=== PATIENT | male | born 1995 | race Caucasian/White ===

== ENCOUNTER 2019-04-14 12:31 | Outpatient (CLI) | payer OTHER ==
--- NOTE | 2019-04-14 13:21 | RAD ---
EXAM: 3 views of the left foot HISTORY: Foot pain COMPARISON: None FINDINGS: 3 views of the left foot shows no evidence of acute fracture or dislocation. No soft tissue swelling is seen. No degenerative changes are present. IMPRESSION: No evidence of acute osseous abnormality.
--- NOTE | 2019-04-14 13:33 | RAD ---
LEFT LEG TWO VIEWS: INDICATIONS: Pain. FINDINGS: No fracture or dislocation of the tibia or fibula identified. No significant soft tissue abnormality. IMPRESSION: No acute osseous abnormality left leg. POS: C
== END 2019-04-14 12:32 | disposition home or self-care (01) ==
LOC: BICRAD 12:31
PROVIDERS: ATTEND Family Medicine
DX: M79.605 Pain in left leg (principal)

== ENCOUNTER 2019-04-24 11:10 | Outpatient (CLI) | payer OTHER ==
--- NOTE | 2019-04-24 11:41 | RAD ---
XR Tib Fib Rt Leg 2 View: 04/24/2019 12:00 AM CLINICAL INDICATION: Pain COMPARISON: None. FINDINGS: Fracture:No fracture. Arthropathy:None of significance. Incidental findings:None of significance. IMPRESSION: 1. No acute osseous abnormality.
== END 2019-04-24 11:11 | disposition home or self-care (01) ==
LOC: BICRAD 11:10
PROVIDERS: ATTEND Family Medicine
DX: M25.561 Pain in right knee (principal)

== ENCOUNTER 2022-03-03 09:04 | Outpatient (CLI) | payer OTHER | END 2022-03-03 09:05 | disposition home or self-care (01) | LOC: BICRAD 09:04 | PROVIDERS: ATTEND Family Medicine | DX: M25.571 Pain in right ankle and joints of right foot (principal); M79.671 Pain in right foot; M79.89 Other specified soft tissue disorders ==

== ENCOUNTER 2022-10-11 21:30 | Inpatient (IN) | payer OTHER ==
[~2022-10-11 21:30] MED LIST: Iopamidol-370 76% 500 ML MDV (1 ML CHARGE) ONE
[2022-10-11] MEDS ORDERED: Morphine 4 MG/ML VIAL ONE (21:59)
[2022-10-11] MEDS ORDERED: Ondansetron PF 4 MG/2 ML Vial ONE (21:59)
[2022-10-11 22:34] LABS: #Eosinphils 0.1 thou/uL (0.0-0.7); #Lymphocytes 2.3 thou/uL (1.20-3.40); #Neutrophils 4.9 thou/uL (1.40-6.50); %Basophils 0.2 % (0.0-1.0); %Eosinophils 1.4 % (0.0-10.0); %Lymphocytes 27.8 % (21.0-51.0); %Monocytes 11.7 % (0.0-10.0); %Neutrophils 58.9 % (42.0-75.0); Mean Corpuscular Hemoglobin 38.1 pg (27.0-31.0); Platelet Count 196 10x3/uL (130-400); RBC Distribution Width 15.2 % (11.5-14.5); Red Blood Cell (RBC) Count 3.41 mill/uL (4.70-6.10); White Blood Cell (WBC) Count 8.4 10x3/uL (4.8-10.8)
[2022-10-11 22:53] LABS: ALT (SGPT) 17 U/L (8-55); AST (SGOT) 27 U/L (5-34); Alkaline Phosphatase 57 U/L (40-110); Anion Gap 13 mmol/L (10-20); BUN (Urea Nitrogen) 20 mg/dL (8.9-20.6); Bilirubin, Total 1.5 mg/dL (0.2-1.2); Calc. Creatinine Clearance 0 mL/min (70-130); Calcium 9.7 mg/dL (7.8-10.44); Carbon Dioxide 34 mmol/L (22-29); Chloride 99 mmol/L (98-107); Estimated GFR 127; Globulin 3.2 g/dL (2.4-3.5); Glucose 71 mg/dL (70-105); Potassium 3.8 mmol/L (3.5-5.1); Protein, Total 7.2 g/dL (6.0-8.3); Sodium 142 mmol/L (136-145)
[2022-10-11 23:04] LABS: Anisocytosis SLIGHT = 6-15 cells (100X) (0-5/hpf); MDiff Complete? YES; Macrocytosis SLIGHT = 6-15 cells (100X) (0-5/hpf); Platelet Morphology Comment Appears Adequate; Polychromasia SLIGHT = 2-3 cells (100X) (0-2/hpf); Stomatocytes MODERATE= 6-15 cells (100X) (0-1/hpf)
[2022-10-11 23:08] LABS: Lipase 2422 U/L (8-78)
[2022-10-11 23:31] LABS: Bacteria/HPF None Seen HPF (None Seen); Bilirubin 1+ (Negative); Blood, Urine Negative (Negative); Clarity Clear (Clear); Glucose, Urine (Dipstick) Normal (Negative); Ketone, Urine 20 mg/dL (Negative); Leukocyte Negative Leu/uL (Negative); Nitrite Negative (Negative); Protein, Urine (Dipstick) 30 mg/dL (Neg-Trace); RBC/HPF 0-3 HPF (0-3); Specific Gravity, Urine 1.046 (1.002-1.036); Squamous Epithelial 0-3 HPF (0-3); Urobilinogen 12 mg/dL (Less than 2); WBC/HPF 0-3 HPF (0-3)
[2022-10-12] MEDS ORDERED: Ondansetron ODT 4 MG TAB SL PRN (00:30)
[2022-10-12] MEDS ORDERED: Ondansetron PF 4 MG/2 ML Vial IVP PRN (00:30)
[2022-10-12] MEDS ORDERED: Sodium Chloride 0.9% 1,000 ML IV SCH ×2 (00:30→03:45)
[2022-10-12 00:45] VITALS: BMI 33.3
[2022-10-12] MEDS ORDERED: Morphine 2 MG/ML VIAL SLOW IVP SCH (02:15)
[2022-10-12] MEDS ORDERED: Lorazepam 2 MG/ML VIAL ONE (03:59)
[2022-10-12] MEDS ORDERED: Lorazepam 2 MG/ML VIAL SLOW IVP SCH (04:00)
[2022-10-12 06:00] LABS: #Eosinphils 0.2 thou/uL (0.0-0.7); #Lymphocytes 2.3 thou/uL (1.20-3.40); #Neutrophils 6.4 thou/uL (1.40-6.50); %Basophils 0.1 % (0.0-1.0); %Eosinophils 2.1 % (0.0-10.0); %Lymphocytes 22.9 % (21.0-51.0); %Monocytes 10.3 % (0.0-10.0); %Neutrophils 64.6 % (42.0-75.0); Hemoglobin 11.7 g/dL (14.0-18.0); Mean Corpuscular HGB CONC 32.8 g/dL (32.0-36.0); Mean Corpuscular Hemoglobin 38.6 pg (27.0-31.0); Mean Platelet Volume 6.9 fL (7.4-10.4); Platelet Count 186 10x3/uL (130-400); RBC Distribution Width 15.1 % (11.5-14.5); Red Blood Cell (RBC) Count 3.03 mill/uL (4.70-6.10); White Blood Cell (WBC) Count 9.9 10x3/uL (4.8-10.8)
[2022-10-12] MEDS ORDERED: Electrolyte Replacement Protocol 1 EACH FS SCH (06:00)
[2022-10-12] MEDS ORDERED: Lactated Ringer's 1,000 ML IV SCH (06:00)
[2022-10-12 06:22] LABS: Cardiac Risk 2.8 (Less than 4.5)
[2022-10-12 06:29] LABS: Anion Gap 16 mmol/L (10-20); BUN (Urea Nitrogen) 17 mg/dL (8.9-20.6); Calc. Creatinine Clearance 228 mL/min (70-130); Calcium 8.8 mg/dL (7.8-10.44); Carbon Dioxide 28 mmol/L (22-29); Chloride 103 mmol/L (98-107); Estimated GFR 129; Glucose 57 mg/dL (70-105); Sodium 143 mmol/L (136-145)
[2022-10-12] MEDS: Acetaminophen 650 MG Suppository PR PRN ×2 (07:15→12:30)
[2022-10-12] MEDS: Morphine 2 MG/ML VIAL SLOW IVP PRN ×2 (08:01→20:37)
[2022-10-12] MEDS: Famotidine/PF 20 mg/2ml Vial SLOW IVP SCH ×2 (08:01→22:13)
[2022-10-12] MEDS ORDERED: Dextrose 5%-Lactated Ringers 1,000 ML IV SCH (09:45)
[2022-10-12] MEDS ORDERED: Valproate Sodium 250 mg/5 ml UD Cup PO SCH (10:00)
[2022-10-12] MEDS: Amantadine HCl 100 mg Capsule PO SCH ×2 (10:29→12:40)
[2022-10-12] MEDS: cloNIDine 0.1 MG TAB PO SCH ×3 (10:29→22:13)
[2022-10-12] MEDS ORDERED: AMANTADINE HCL 100 MG PO SCH (11:00)
[2022-10-12] MEDS ORDERED: FLUoxetine HCl 20 MG/5 ML UDCUP PO SCH (11:45)
[2022-10-12] MEDS: Dextrose 5%-Lactated Ringers 1,000 ML IV SCH ×2 (12:12→17:28)
[2022-10-12] MEDS: Lorazepam 2 MG/ML VIAL SLOW IVP PRN ×2 (12:14→18:17)
[2022-10-12] MEDS: Ketorolac Tromethamine 30 MG/ML VIAL IVP SCH ×2 (12:15→17:27)
[2022-10-12] MEDS ORDERED: Piperacillin/Tazobactam 3.375 GM in Sodium Chloride 0.9% 100 ML IVPB SCH ×2 (12:45→13:15)
[2022-10-12] MEDS ORDERED: FLUoxetine HCl 10 MG CAP PO SCH (15:00)
[2022-10-12] MEDS: Piperacillin/Tazobactam 3.375 GM in Sodium Chloride 0.9% 100 ML IVPB SCH (17:28)
[2022-10-12] MEDS: Valproate Sodium 250 mg/5 ml UD Cup PO SCH (22:14)
[2022-10-12] MEDS: FLUoxetine HCl 10 MG CAP PO SCH (22:14)
[2022-10-13] MEDS: Ketorolac Tromethamine 30 MG/ML VIAL IVP SCH ×4 (00:20→17:58)
[2022-10-13] MEDS: Lorazepam 2 MG/ML VIAL SLOW IVP PRN ×3 (00:22→17:59)
[2022-10-13] MEDS: Dextrose 5%-Lactated Ringers 1,000 ML IV SCH ×4 (00:23→23:41)
[2022-10-13] MEDS: Piperacillin/Tazobactam 3.375 GM in Sodium Chloride 0.9% 100 ML IVPB SCH ×3 (02:35→16:49)
[2022-10-13 05:28] LABS: #Eosinphils 0.5 thou/uL (0.0-0.7); #Lymphocytes 2.3 thou/uL (1.20-3.40); #Monocytes 0.6 thou/uL (0.11-0.59); #Neutrophils 5.3 thou/uL (1.40-6.50); %Basophils 0.5 % (0.0-1.0); %Eosinophils 5.3 % (0.0-10.0); %Lymphocytes 26.6 % (21.0-51.0); %Monocytes 6.6 % (0.0-10.0); Mean Corpuscular HGB CONC 34.2 g/dL (32.0-36.0); Mean Corpuscular Hemoglobin 40.3 pg (27.0-31.0); Mean Platelet Volume 7.1 fL (7.4-10.4); Platelet Count 160 10x3/uL (130-400); Red Blood Cell (RBC) Count 2.73 mill/uL (4.70-6.10); White Blood Cell (WBC) Count 8.7 10x3/uL (4.8-10.8)
[2022-10-13 05:54] LABS: ALT (SGPT) 16 U/L (8-55); AST (SGOT) 30 U/L (5-34); Albumin 3.2 g/dL (3.5-5.0); Alkaline Phosphatase 49 U/L (40-110); Anion Gap 12 mmol/L (10-20); BUN (Urea Nitrogen) 12 mg/dL (8.9-20.6); Calc. Creatinine Clearance 260 mL/min (70-130); Calcium 9.1 mg/dL (7.8-10.44); Carbon Dioxide 31 mmol/L (22-29); Cardiac Risk 2.9 (Less than 4.5); Chloride 104 mmol/L (98-107); Cholesterol 97 mg/dl (< 200 Desired); Estimated GFR 134; Globulin 2.9 g/dL (2.4-3.5); Glucose 94 mg/dL (70-105); HDL Cholesterol 33 mg/dL (>60 Neg Risk); LDL Cholesterol, Calculated 41 mg/dL; Potassium 4.2 mmol/L (3.5-5.1); Protein, Total 6.1 g/dL (6.0-8.3); Sodium 143 mmol/L (136-145); Triglycerides 114 mg/dL (Less than 150)
[2022-10-13] MEDS ORDERED: Amantadine HCl 100 mg Capsule PO SCH (09:00)
[2022-10-13] MEDS: Famotidine/PF 20 mg/2ml Vial SLOW IVP SCH ×2 (09:57→21:19)
[2022-10-13] MEDS: cloNIDine 0.1 MG TAB PO SCH ×2 (09:57→21:19)
[2022-10-13] MEDS: Valproate Sodium 250 mg/5 ml UD Cup PO SCH ×2 (10:18→21:19)
[2022-10-13] MEDS: AMANTADINE HCL 100 MG PO SCH (10:18)
[2022-10-13] MEDS: FLUoxetine HCl 10 MG CAP PO SCH (10:27)
[2022-10-13] MEDS ORDERED: FLUoxetine HCl 20 MG/5 ML UDCUP PER TUBE SCH (10:30)
[2022-10-13] MEDS: Morphine 2 MG/ML VIAL SLOW IVP PRN (21:19)
[2022-10-13] MEDS: FLUoxetine HCl 20 MG/5 ML UDCUP PER TUBE SCH (21:21)
[2022-10-14] MEDS: Piperacillin/Tazobactam 3.375 GM in Sodium Chloride 0.9% 100 ML IVPB SCH ×2 (00:23→09:54)
[2022-10-14] MEDS: Ketorolac Tromethamine 30 MG/ML VIAL IVP SCH ×3 (00:23→14:35)
[2022-10-14] MEDS: Dextrose 5%-Lactated Ringers 1,000 ML IV SCH ×2 (06:19→09:03)
[2022-10-14] MEDS: Famotidine/PF 20 mg/2ml Vial SLOW IVP SCH (09:03)
[2022-10-14] MEDS: cloNIDine 0.1 MG TAB PO SCH (09:03)
[2022-10-14] MEDS: FLUoxetine HCl 20 MG/5 ML UDCUP PER TUBE SCH (09:04)
[2022-10-14] MEDS: AMANTADINE HCL 100 MG PO SCH (09:04)
[2022-10-14] MEDS: Valproate Sodium 250 mg/5 ml UD Cup PO SCH (09:53)
[2022-10-14 11:45] VITALS: BP 137/89; TEMP 98.4
== END 2022-10-14 15:17 | disposition home or self-care (01) | DRG 439 ==
LOC: ERS 21:30 → T4-A 23:42 → CCU 10-12 04:59 → 2NO 10-12 08:36
PROVIDERS: ADMIT Hospitalist; ATTEND Hospitalist
DX: K85.90 Acute pancreatitis without necrosis or infection, unspecified (principal); E87.3 Alkalosis; F84.0 Autistic disorder; Z79.899 Other long term (current) drug therapy; Z88.8 Allergy status to other drugs, medicaments and biological substances; H91.3 Deaf nonspeaking, not elsewhere classified; Q98.4 Klinefelter syndrome, unspecified; D64.9 Anemia, unspecified; K59.00 Constipation, unspecified
CPT/HCPCS: 36415; 36416; 71045; 71275; 74177; 80048; 80053; 80061; 81003; 81015; 83605; 83690; 85025; 87040; 87086; 96374; 96375; J1885; J2060; J2270; J2272; J2405; J2543; J3490; J7050; J7120; Q9967; S0028; U0003; U0005

== ENCOUNTER 2022-10-14 17:48 | Inpatient (IN) | payer BC, OTHER ==
[2022-10-14 18:16] LABS: #Eosinphils 0.9 thou/uL (0.0-0.7); #Lymphocytes 2.7 thou/uL (1.20-3.40); #Monocytes 0.5 thou/uL (0.11-0.59); %Basophils 0.5 % (0.0-1.0); %Eosinophils 11.5 % (0.0-10.0); %Lymphocytes 32.7 % (21.0-51.0); %Monocytes 6.1 % (0.0-10.0); %Neutrophils 49.3 % (42.0-75.0); Hemoglobin 9.9 g/dL (14.0-18.0); Mean Corpuscular HGB CONC 34.2 g/dL (32.0-36.0); Mean Corpuscular Hemoglobin 40.5 pg (27.0-31.0); Platelet Count 179 10x3/uL (130-400); RBC Distribution Width 14.8 % (11.5-14.5); Red Blood Cell (RBC) Count 2.44 mill/uL (4.70-6.10); White Blood Cell (WBC) Count 8.1 10x3/uL (4.8-10.8)
[2022-10-14 18:38] LABS: ALT (SGPT) 14 U/L (8-55); AST (SGOT) 17 U/L (5-34); Alkaline Phosphatase 51 U/L (40-110); Anion Gap 12 mmol/L (10-20); BUN (Urea Nitrogen) 9 mg/dL (8.9-20.6); Bilirubin, Total 0.6 mg/dL (0.2-1.2); Calc. Creatinine Clearance 0 mL/min (70-130); Carbon Dioxide 34 mmol/L (22-29); Chloride 102 mmol/L (98-107); Estimated GFR 133; Glucose 92 mg/dL (70-105); Potassium 3.6 mmol/L (3.5-5.1); Sodium 144 mmol/L (136-145)
[2022-10-14 18:42] LABS: Actual Bicarbonate (HCO3v) 35.6 mEq/L (22-28); Base Excess 9.8 mEq/L (-2.0 to +3.0); Calcium, Ionized (venous) 1.08 mmol/L (1.16-1.32); Chloride (VBG) 101 mmol/L (98-106); Hematocrit-VBG 32 % (42.0-52.0); Hemoglobin (Hb) 10.8 g/dL (13.2-17.3); Potassium (VBG) 3.77 mmol/L (3.70-5.30); Sodium 142.8 mmol/L (133-146); pH (venous) 7.431 (7.32-7.43)
[2022-10-14] MEDS ORDERED: Morphine 4 MG/ML VIAL ONE (18:50)
[2022-10-14] MEDS ORDERED: Pantoprazole 40 MG VIAL ONE (19:17)
[2022-10-14] MEDS ORDERED: Acetaminophen 325 MG TAB PO PRN (20:12)
[2022-10-14] MEDS ORDERED: Acetaminophen 650 MG Suppository PR PRN (20:12)
[2022-10-14] MEDS ORDERED: Bisacodyl 5 MG TAB PO PRN (20:12)
[2022-10-14] MEDS ORDERED: Bisacodyl 10 MG SUPP PR PRN (20:12)
[2022-10-14] MEDS ORDERED: Senokot S 8.6-50 MG TAB PO PRN (20:12)
[2022-10-14] MEDS ORDERED: Furosemide 20 MG/2 ML VIAL SLOW IVP SCH (20:15)
[2022-10-14] MEDS ORDERED: Lorazepam 2 MG/ML VIAL ONE (22:43)
[2022-10-14 22:50] LABS: Actual Bicarbonate (HCO3a) 33.2 mEq/L (22-28); Base Excess (BEa) 8.3 mEq/L (-2.0 to +3.0); CO2 Tension 47.8 mmHg (35.0-45.0); Calcium, Ionized (arterial) 1.12 mmol/L (1.12-1.30); Carboxyhemoglobin (COHb) 0.3 gm% (0.0-3.0); Hematocrit-ABG 32 % (42.0-52.0); Hemoglobin (Hb) 10.9 g/dL (14.0-18.0); Potassium - ABG Lab 3.63 mmol/L (3.70-5.30)
[2022-10-14 22:52] LABS: Puncture Site RRA
[2022-10-14 23:02] LABS: #Eosinphils 0.9 thou/uL (0.0-0.7); #Lymphocytes 3.1 thou/uL (1.20-3.40); #Monocytes 0.1 thou/uL (0.11-0.59); #Neutrophils 3.6 thou/uL (1.40-6.50); %Basophils 0.6 % (0.0-1.0); %Eosinophils 11.2 % (0.0-10.0); %Lymphocytes 39.9 % (21.0-51.0); %Monocytes 1.3 % (0.0-10.0); %Neutrophils 46.9 % (42.0-75.0); Hemoglobin 10.9 g/dL (14.0-18.0); Mean Corpuscular HGB CONC 33.7 g/dL (32.0-36.0); Mean Corpuscular Hemoglobin 40.5 pg (27.0-31.0); Mean Platelet Volume 7.3 fL (7.4-10.4); Platelet Count 179 10x3/uL (130-400); RBC Distribution Width 15.1 % (11.5-14.5); White Blood Cell (WBC) Count 7.8 10x3/uL (4.8-10.8)
[2022-10-14] MEDS ORDERED: Dextrose 50% Abboject 50 ML SYRINGE ONE (23:18)
[2022-10-14 23:22] LABS: Anion Gap 16 mmol/L (10-20); BUN (Urea Nitrogen) 7 mg/dL (8.9-20.6); Calc. Creatinine Clearance 263 mL/min (70-130); Calcium 8.7 mg/dL (7.8-10.44); Carbon Dioxide 28 mmol/L (22-29); Chloride 101 mmol/L (98-107); Estimated GFR 131; Glucose 156 mg/dL (70-105); Magnesium 1.4 mg/dL (1.6-2.6); Phosphorus 4.6 mg/dL (2.3-4.7); Potassium 4.1 mmol/L (3.5-5.1); Sodium 141 mmol/L (136-145)
[2022-10-15 06:16] LABS: Hemoglobin 10.2 g/dL (14.0-18.0); Mean Corpuscular HGB CONC 33.7 g/dL (32.0-36.0); Mean Corpuscular Hemoglobin 40.1 pg (27.0-31.0); Mean Platelet Volume 6.9 fL (7.4-10.4); Platelet Count 206 10x3/uL (130-400); RBC Distribution Width 14.9 % (11.5-14.5); Red Blood Cell (RBC) Count 2.55 mill/uL (4.70-6.10); White Blood Cell (WBC) Count 8.1 10x3/uL (4.8-10.8)
[2022-10-15 06:32] LABS: #Monocytes 0.3 thou/uL (0.11-0.59); #Neutrophils 3.8 thou/uL (1.40-6.50); %Basophils 0.2 % (0.0-1.0); %Eosinophils 11.9 % (0.0-10.0); %Lymphocytes 37.2 % (21.0-51.0); %Neutrophils 46.7 % (42.0-75.0); MDiff Complete? YES; Macrocytosis MODERATE=16-30 cells (100X) (0-5/hpf)
[2022-10-15 06:34] LABS: ALT (SGPT) 13 U/L (8-55); AST (SGOT) 30 U/L (5-34); Albumin 3.1 g/dL (3.5-5.0); Alkaline Phosphatase 59 U/L (40-110); Anion Gap 14 mmol/L (10-20); BUN (Urea Nitrogen) 8 mg/dL (8.9-20.6); Bilirubin, Total 0.6 mg/dL (0.2-1.2); Calc. Creatinine Clearance 259 mL/min (70-130); Calcium 8.9 mg/dL (7.8-10.44); Carbon Dioxide 35 mmol/L (22-29); Chloride 99 mmol/L (98-107); Estimated GFR 130; Globulin 3.8 g/dL (2.4-3.5); Glucose 75 mg/dL (70-105); Potassium 3.6 mmol/L (3.5-5.1); Protein, Total 6.9 g/dL (6.0-8.3); Sodium 144 mmol/L (136-145)
[2022-10-15 09:18] LABS: Cardiac Risk 4.5 (Less than 4.5)
[2022-10-15] MEDS ORDERED: Iopamidol-370 76% 500 ML MDV (1 ML CHARGE) ONE (10:41)
[2022-10-15] MEDS: Sodium Chloride 0.9% 1,000 ML IV SCH (13:11)
[2022-10-15] MEDS ORDERED: Magnesium Sulfate In Water 4 GM in Premix Bag 1 BAG IVPB SCH (13:15)
[2022-10-15] MEDS ORDERED: Valproate Sodium 250 mg/5 ml UD Cup PO SCH (13:15)
[2022-10-15] MEDS: Pantoprazole 40 MG VIAL IVP SCH (13:35)
[2022-10-15] MEDS: Morphine 2 MG/ML VIAL SLOW IVP PRN ×2 (14:16→20:15)
[2022-10-15 17:09] LABS: Magnesium 2.5 mg/dL (1.6-2.6)
[2022-10-15] MEDS: FLUoxetine HCl 20 MG/5 ML UDCUP PO SCH (20:18)
[2022-10-15] MEDS: Valproate Sodium 250 mg/5 ml UD Cup PO SCH (20:18)
[2022-10-15] MEDS ORDERED: FLUoxetine HCl 10 MG CAP PO SCH (21:00)
[2022-10-15] MEDS: Polyvinyl Alcohol 1.4%/Povidone 0.6% Opth Drops EA EYE SCH (22:10)
[2022-10-16] MEDS: Sodium Chloride 0.9% 1,000 ML IV SCH ×4 (02:26→23:44)
[2022-10-16] MEDS: Morphine 2 MG/ML VIAL SLOW IVP PRN ×4 (03:59→23:26)
[2022-10-16 05:37] LABS: #Eosinphils 0.7 thou/uL (0.0-0.7); #Lymphocytes 2.5 thou/uL (1.20-3.40); #Monocytes 0.6 thou/uL (0.11-0.59); #Neutrophils 2.2 thou/uL (1.40-6.50); %Basophils 0.2 % (0.0-1.0); %Eosinophils 11.8 % (0.0-10.0); %Lymphocytes 40.6 % (21.0-51.0); %Monocytes 10.6 % (0.0-10.0); %Neutrophils 36.8 % (42.0-75.0); Hemoglobin 10.7 g/dL (14.0-18.0); Mean Corpuscular HGB CONC 33.6 g/dL (32.0-36.0); Mean Corpuscular Hemoglobin 39.9 pg (27.0-31.0); Mean Platelet Volume 6.5 fL (7.4-10.4); Platelet Count 184 10x3/uL (130-400); RBC Distribution Width 14.7 % (11.5-14.5); Red Blood Cell (RBC) Count 2.69 mill/uL (4.70-6.10)
[2022-10-16 06:14] LABS: AST (SGOT) 24 U/L (5-34); Bilirubin, Total 0.7 mg/dL (0.2-1.2); Calcium 8.9 mg/dL (7.8-10.44); Chloride 101 mmol/L (98-107); Potassium 3.7 mmol/L (3.5-5.1); Sodium 140 mmol/L (136-145)
[2022-10-16 06:20] LABS: Albumin 3.1 g/dL (3.5-5.0)
[2022-10-16 06:22] LABS: Glucose 65 mg/dL (70-105)
[2022-10-16 06:23] LABS: Globulin 3.3 g/dL (2.4-3.5); Protein, Total 6.4 g/dL (6.0-8.3)
[2022-10-16 06:24] LABS: Anion Gap 18 mmol/L (10-20); Carbon Dioxide 26 mmol/L (22-29)
[2022-10-16 06:25] LABS: Alkaline Phosphatase 55 U/L (40-110)
[2022-10-16 06:26] LABS: Calc. Creatinine Clearance 302 mL/min (70-130); Estimated GFR 137
[2022-10-16 06:27] LABS: BUN (Urea Nitrogen) 11 mg/dL (8.9-20.6)
[2022-10-16 06:28] LABS: ALT (SGPT) 12 U/L (8-55)
[2022-10-16] MEDS ORDERED: Dextrose 5%-Lactated Ringers 1,000 ML IV SCH (08:30)
[2022-10-16] MEDS: Amantadine HCl 100 mg Capsule PO SCH (08:54)
[2022-10-16] MEDS: FLUoxetine HCl 20 MG/5 ML UDCUP PO SCH ×2 (08:55→21:34)
[2022-10-16] MEDS: Pantoprazole 40 MG VIAL IVP SCH (08:55)
[2022-10-16] MEDS: Valproate Sodium 250 mg/5 ml UD Cup PO SCH ×2 (08:55→21:36)
[2022-10-16] MEDS: Polyvinyl Alcohol 1.4%/Povidone 0.6% Opth Drops EA EYE SCH ×2 (10:02→21:57)
[2022-10-16] MEDS: cloNIDine 0.1 MG TAB PO SCH ×2 (21:32→23:29)
[2022-10-16] MEDS ORDERED: cloNIDine 0.2 MG TAB PO SCH (23:15)
[2022-10-17] MEDS: Morphine 2 MG/ML VIAL SLOW IVP PRN (03:56)
[2022-10-17 06:14] LABS: Strep pneumo Urine Ag NEGATIVE (NEGATIVE)
[2022-10-17 06:29] LABS: #Eosinphils 0.7 thou/uL (0.0-0.7); #Lymphocytes 2.1 thou/uL (1.20-3.40); #Monocytes 0.6 thou/uL (0.11-0.59); %Basophils 0.7 % (0.0-1.0); %Eosinophils 12.4 % (0.0-10.0); %Lymphocytes 39.7 % (21.0-51.0); %Monocytes 10.3 % (0.0-10.0); %Neutrophils 36.9 % (42.0-75.0); Hemoglobin 9.6 g/dL (14.0-18.0); Mean Corpuscular HGB CONC 34.4 g/dL (32.0-36.0); Mean Corpuscular Hemoglobin 40.7 pg (27.0-31.0); Mean Platelet Volume 6.7 fL (7.4-10.4); Platelet Count 151 10x3/uL (130-400); RBC Distribution Width 14.7 % (11.5-14.5); Red Blood Cell (RBC) Count 2.36 mill/uL (4.70-6.10); White Blood Cell (WBC) Count 5.4 10x3/uL (4.8-10.8)
[2022-10-17 06:47] LABS: ALT (SGPT) 9 U/L (8-55); AST (SGOT) 17 U/L (5-34); Albumin 2.8 g/dL (3.5-5.0); Alkaline Phosphatase 52 U/L (40-110); Anion Gap 13 mmol/L (10-20); BUN (Urea Nitrogen) 10 mg/dL (8.9-20.6); Bilirubin, Total 0.8 mg/dL (0.2-1.2); Calc. Creatinine Clearance 324 mL/min (70-130); Calcium 8.9 mg/dL (7.8-10.44); Carbon Dioxide 33 mmol/L (22-29); Chloride 99 mmol/L (98-107); Estimated GFR 139; Glucose 77 mg/dL (70-105); Potassium 3.5 mmol/L (3.5-5.1); Protein, Total 5.8 g/dL (6.0-8.3); Sodium 141 mmol/L (136-145)
[2022-10-17] MEDS: FLUoxetine HCl 20 MG/5 ML UDCUP PO SCH (09:54)
[2022-10-17] MEDS: Valproate Sodium 250 mg/5 ml UD Cup PO SCH ×2 (09:54→20:19)
[2022-10-17] MEDS: cloNIDine 0.2 MG TAB PO SCH ×2 (09:55→20:19)
[2022-10-17] MEDS: Pantoprazole 40 MG VIAL IVP SCH (09:56)
[2022-10-17] MEDS: Polyvinyl Alcohol 1.4%/Povidone 0.6% Opth Drops EA EYE SCH ×2 (09:57→20:20)
[2022-10-17] MEDS: Amantadine HCl 100 mg Capsule PO SCH (09:59)
[2022-10-17] MEDS: Sodium Chloride 0.9% 1,000 ML IV SCH (10:01)
[2022-10-17] MEDS ORDERED: Mineral Oil ENEMA PR SCH (11:30)
[2022-10-17] MEDS: NS 0.9% w/ 20 MEQ KCL 1,000 ML IV SCH (14:32)
[2022-10-18] MEDS ORDERED: fentaNYL PF 100 MCG/2 ML SYRINGE ONE (07:14)
[2022-10-18] MEDS ORDERED: Magnesium 5 GM/10 ML VIAL ONE (07:14)
[2022-10-18] MEDS ORDERED: Dexmedetomidine 200 MCG/2 ML VIAL ONE (07:14)
[2022-10-18] MEDS ORDERED: Iopamidol 30 ML ONE (07:30)
[2022-10-18] MEDS ORDERED: Bupivacaine/Epinephrine 0.25% 30 ML VIAL ONE (07:30)
[2022-10-18] MEDS: cloNIDine 0.2 MG TAB PO SCH ×2 (10:22→20:42)
[2022-10-18] MEDS: Amantadine HCl 100 mg Capsule PO SCH (10:22)
[2022-10-18] MEDS: Polyethylene Glycol 3350 17 GM Packet PO SCH ×2 (10:23→20:44)
[2022-10-18] MEDS: Pantoprazole 40 MG VIAL IVP SCH (10:23)
[2022-10-18] MEDS: FLUoxetine HCl 20 MG/5 ML UDCUP PO SCH (10:23)
[2022-10-18] MEDS: Valproate Sodium 250 mg/5 ml UD Cup PO SCH ×2 (10:24→20:43)
[2022-10-18] MEDS: Polyvinyl Alcohol 1.4%/Povidone 0.6% Opth Drops EA EYE SCH ×2 (10:24→23:27)
[2022-10-18] MEDS ORDERED: CEFAZOLIN 2 GM VIAL ONE (11:37)
[2022-10-18] MEDS ORDERED: Sodium Chloride 0.9% 100 ML ONE (11:37)
[2022-10-18] MEDS ORDERED: Ondansetron PF 4 MG/2 ML Vial ONE (11:50)
[2022-10-18] MEDS ORDERED: PROPOFOL 200 MG/20 ML VIAL ONE (11:50)
[2022-10-18] MEDS ORDERED: Rocuronium Bromide 10 MG/ML (10ML VIAL) ONE (11:50)
[2022-10-18] MEDS ORDERED: Lidocaine 1% PF 5 ML VIAL ONE (11:50)
[2022-10-18] MEDS ORDERED: SUGAMMADEX SODIUM 200 MG/2 ML VIAL ONE (13:04)
[2022-10-18] MEDS ORDERED: Promethazine HCl 25 MG/ML VIAL IM PRN (14:14)
[2022-10-18] MEDS ORDERED: Ondansetron HCl/PF 4 MG/2 ML Vial IVP PRN (14:14)
[2022-10-18] MEDS ORDERED: fentaNYL 50 mcg/mL 1 mL Vial ONE (14:36)
[2022-10-18] MEDS ORDERED: HYDROmorphone 0.5 MG/0.5 ML SYRINGE SLOW IVP SCH (15:45)
[2022-10-18] MEDS: Ketorolac Tromethamine 30 MG/ML VIAL IVP PRN (16:23)
[2022-10-18] MEDS: NS 0.9% w/ 20 MEQ KCL 1,000 ML IV SCH (16:24)
[2022-10-18 17:50] LABS: Hemoglobin 10.4 g/dL (14.0-18.0); Mean Corpuscular HGB CONC 34.9 g/dL (32.0-36.0); Mean Corpuscular Hemoglobin 41.5 pg (27.0-31.0); Mean Platelet Volume 6.7 fL (7.4-10.4); Platelet Count 187 10x3/uL (130-400); RBC Distribution Width 14.2 % (11.5-14.5)
[2022-10-18 18:03] LABS: ALT (SGPT) 18 U/L (8-55); AST (SGOT) 46 U/L (5-34); Alkaline Phosphatase 54 U/L (40-110); Anion Gap 18 mmol/L (10-20); BUN (Urea Nitrogen) 10 mg/dL (8.9-20.6); Bilirubin, Total 1.4 mg/dL (0.2-1.2); Calc. Creatinine Clearance 313 mL/min (70-130); Calcium 9.2 mg/dL (7.8-10.44); Carbon Dioxide 26 mmol/L (22-29); Chloride 97 mmol/L (98-107); Estimated GFR 138; Globulin 3.3 g/dL (2.4-3.5); Glucose 80 mg/dL (70-105); Potassium 3.4 mmol/L (3.5-5.1); Protein, Total 6.3 g/dL (6.0-8.3); Sodium 138 mmol/L (136-145)
[2022-10-18 18:22] LABS: Band 8 % (5-11); Eosinophils 8 % (0-10); Lymphocytes 46 % (21-51); MDiff Complete? YES; Macrocytosis SLIGHT = 6-15 cells (100X) (0-5/hpf); Metamyelocyte 1 % (0-0); Monocytes 13 % (0-10); Neutrophil 24 % (42-75); Platelet Morphology Comment Appears Adequate; Polychromasia SLIGHT = 2-3 cells (100X) (0-2/hpf)
[2022-10-18] MEDS ORDERED: Morphine 2 MG/ML VIAL SLOW IVP PRN (19:45)
[2022-10-18] MEDS ORDERED: traMADol HCl 50 MG TAB PO SCH (20:00)
[2022-10-18] MEDS ORDERED: Acetaminophen 500 MG TAB PO SCH (20:00)
[2022-10-18] MEDS: Ketorolac Tromethamine 30 MG/ML VIAL IVP SCH (20:34)
[2022-10-19] MEDS: Ketorolac Tromethamine 30 MG/ML VIAL IVP PRN (04:59)
[2022-10-19 05:56] LABS: ALT (SGPT) 20 U/L (8-55); AST (SGOT) 39 U/L (5-34); Albumin 2.5 g/dL (3.5-5.0); Alkaline Phosphatase 43 U/L (40-110); Anion Gap 15 mmol/L (10-20); BUN (Urea Nitrogen) 11 mg/dL (8.9-20.6); Calc. Creatinine Clearance 288 mL/min (70-130); Calcium 8.7 mg/dL (7.8-10.44); Carbon Dioxide 33 mmol/L (22-29); Chloride 98 mmol/L (98-107); Estimated GFR 135; Globulin 2.9 g/dL (2.4-3.5); Glucose 77 mg/dL (70-105); Lipase 78 U/L (8-78); Potassium 3.6 mmol/L (3.5-5.1); Protein, Total 5.4 g/dL (6.0-8.3); Sodium 142 mmol/L (136-145)
[2022-10-19 06:32] LABS: Hemoglobin 8.3 g/dL (14.0-18.0); Mean Corpuscular Hemoglobin 39.8 pg (27.0-31.0); Mean Platelet Volume 7.2 fL (7.4-10.4); Platelet Count 156 10x3/uL (130-400); RBC Distribution Width 14.7 % (11.5-14.5); Red Blood Cell (RBC) Count 2.08 mill/uL (4.70-6.10); White Blood Cell (WBC) Count 3.7 10x3/uL (4.8-10.8)
[2022-10-19 07:02] LABS: Anisocytosis SLIGHT = 6-15 cells (100X) (0-5/hpf); Band 13 % (5-11); Eosinophils 3 % (0-10); Lymphocytes 43 % (21-51); MDiff Complete? YES; Macrocytosis MODERATE=16-30 cells (100X) (0-5/hpf); Monocytes 13 % (0-10); Neutrophil 28 % (42-75); Ovalocytes SLIGHT = 2-5 cells (100X) (0-1/hpf); Platelet Morphology Comment Appears Adequate
[2022-10-19] MEDS ORDERED: traMADol HCl 50 MG TAB PO PRN (08:04)
[2022-10-19] MEDS ORDERED: Acetaminophen/Codeine 30-300mg Tablet PO PRN (08:45)
[2022-10-19] MEDS ORDERED: Acetaminophen W/ Codeine 5 ML UDCUP PO PRN (08:52)
[2022-10-19] MEDS: Pantoprazole 40 MG VIAL IVP SCH (08:54)
[2022-10-19] MEDS: Polyethylene Glycol 3350 17 GM Packet PO SCH ×2 (08:55→21:52)
[2022-10-19] MEDS: cloNIDine 0.2 MG TAB PO SCH (08:57)
[2022-10-19] MEDS: Amantadine HCl 100 mg Capsule PO SCH ×2 (08:58→10:04)
[2022-10-19] MEDS: Valproate Sodium 250 mg/5 ml UD Cup PO SCH ×2 (08:59→21:52)
[2022-10-19] MEDS ORDERED: Acetaminophen 325 MG TAB PO PRN (09:00)
[2022-10-19] MEDS: Polyvinyl Alcohol 1.4%/Povidone 0.6% Opth Drops EA EYE SCH ×2 (09:00→21:52)
[2022-10-19] MEDS: FLUoxetine HCl 20 MG/5 ML UDCUP PO SCH (09:17)
[2022-10-19] MEDS ORDERED: Acetaminophen/Codeine 30-300mg Tablet PO SCH (12:00)
[2022-10-19] MEDS ORDERED: Acetaminophen W/ Codeine 5 ML UDCUP PO SCH (12:00)
[2022-10-19] MEDS: NS 0.9% w/ 20 MEQ KCL 1,000 ML IV SCH (12:29)
[2022-10-19 17:17] LABS: Actual Bicarbonate (HCO3a) 33.3 mEq/L (22-28); Base Excess (BEa) 7.1 mEq/L (-2.0 to +3.0); CO2 Tension 54.4 mmHg (35.0-45.0); Calcium, Ionized (arterial) 1.13 mmol/L (1.12-1.30); Carboxyhemoglobin (COHb) 0.4 gm% (0.0-3.0); Hematocrit-ABG 36 % (42.0-52.0); Hemoglobin (Hb) 12.4 g/dL (14.0-18.0); O2 Tension (PaO2), arterial 118.7 mmHg (80.0-100.0); Potassium - ABG Lab 3.18 mmol/L (3.70-5.30); pH, Arterial 7.405 (7.35-7.45)
[2022-10-19 17:22] LABS: Puncture Site RRA
[2022-10-19] MEDS ORDERED: Naloxone HCl 0.4 mg/ml Vial IV SCH (17:30)
[2022-10-19] MEDS ORDERED: Furosemide 20 MG/2 ML VIAL SLOW IVP SCH (21:00)
[2022-10-19] MEDS ORDERED: Valproate Sodium 1,000 MG in Sodium Chloride 0.9% 100 ML IVPB SCH (21:00)
[2022-10-19] MEDS ORDERED: Heparin 5,000 UNITS/ML VIAL SC SCH (21:00)
[2022-10-19] MEDS: Scopolamine 1.5 mg/72 hour Patch TD SCH (21:16)
[2022-10-19] MEDS: Ondansetron PF 4 MG/2 ML Vial IVP PRN (21:16)
[2022-10-19] MEDS: Ketorolac Tromethamine 30 MG/ML VIAL IVP SCH (21:49)
[2022-10-19] MEDS: cloNIDine 0.1 MG TAB PO SCH (21:52)
[2022-10-19] MEDS: Morphine 2 MG/ML VIAL SLOW IVP SCH ×2 (23:26→23:54)
[2022-10-20] MEDS: Ketorolac Tromethamine 30 MG/ML VIAL IVP PRN ×3 (00:58→15:48)
[2022-10-20] MEDS: Acetaminophen 650 MG Suppository PR PRN ×2 (00:58→06:15)
[2022-10-20] MEDS ORDERED: Piperacillin/Tazobactam 3.375 GM in Sodium Chloride 0.9% 100 ML IVPB SCH (02:00)
[2022-10-20 02:10] LABS: Hemoglobin 9.5 g/dL (14.0-18.0); Mean Corpuscular HGB CONC 31.1 g/dL (32.0-36.0); Mean Corpuscular Hemoglobin 36.7 pg (27.0-31.0); Mean Platelet Volume 6.8 fL (7.4-10.4); Platelet Count 188 10x3/uL (130-400); RBC Distribution Width 14.6 % (11.5-14.5); White Blood Cell (WBC) Count 4.4 10x3/uL (4.8-10.8)
[2022-10-20 02:48] LABS: ALT (SGPT) 24 U/L (8-55); AST (SGOT) 36 U/L (5-34); Albumin 3.1 g/dL (3.5-5.0); Alkaline Phosphatase 64 U/L (40-110); Anion Gap 18 mmol/L (10-20); BUN (Urea Nitrogen) 11 mg/dL (8.9-20.6); Bilirubin, Total 1.4 mg/dL (0.2-1.2); Calc. Creatinine Clearance 279 mL/min (70-130); Calcium 9.4 mg/dL (7.8-10.44); Carbon Dioxide 33 mmol/L (22-29); Chloride 96 mmol/L (98-107); Estimated GFR 133; Globulin 3.8 g/dL (2.4-3.5); Glucose 99 mg/dL (70-105); Potassium 3.4 mmol/L (3.5-5.1); Protein, Total 6.9 g/dL (6.0-8.3); Sodium 144 mmol/L (136-145)
[2022-10-20 02:51] LABS: Band 15 % (5-11); Eosinophils 1 % (0-10); Hypochromia SLIGHT = 6-15 cells (100X) (0-5/hpf); Lymphocytes 26 % (21-51); MDiff Complete? YES; Monocytes 8 % (0-10); Neutrophil 45 % (42-75); Platelet Morphology Comment Appears Adequate; Reactive Lymphocytes 5 % (0-10)
[2022-10-20] MEDS: Piperacillin/Tazobactam 3.375 GM in Sodium Chloride 0.9% 100 ML IVPB SCH ×3 (05:30→21:01)
[2022-10-20] MEDS ORDERED: Valproate Sodium 500 MG in Sodium Chloride 0.9% 100 ML IVPB SCH (06:00)
[2022-10-20] MEDS ORDERED: Potassium Chloride 20 MEQ in Premix Bag 1 BAG IVPB SCH (06:45)
[2022-10-20 07:43] LABS: Hemoglobin 8.8 g/dL (14.0-18.0); Mean Corpuscular HGB CONC 33.2 g/dL (32.0-36.0); Mean Corpuscular Hemoglobin 39.2 pg (27.0-31.0); Red Blood Cell (RBC) Count 2.25 mill/uL (4.70-6.10); White Blood Cell (WBC) Count 7.5 10x3/uL (4.8-10.8)
[2022-10-20 07:44] LABS: Mean Platelet Volume 6.9 fL (7.4-10.4); Platelet Count 173 10x3/uL (130-400); RBC Distribution Width 14.5 % (11.5-14.5)
[2022-10-20] MEDS ORDERED: Potassium Chloride 10 MEQ in Dextrose 5%-Lactated Ringers 1,000 ML IV SCH (07:45)
[2022-10-20 07:53] LABS: Magnesium 1.3 mg/dL (1.6-2.6); Phosphorus 4.1 mg/dL (2.3-4.7)
[2022-10-20 08:01] LABS: ALT (SGPT) 22 U/L (8-55); AST (SGOT) 35 U/L (5-34); Albumin 2.7 g/dL (3.5-5.0); Alkaline Phosphatase 59 U/L (40-110); Anion Gap 15 mmol/L (10-20); BUN (Urea Nitrogen) 13 mg/dL (8.9-20.6); Bilirubin, Total 1.1 mg/dL (0.2-1.2); Calc. Creatinine Clearance 265 mL/min (70-130); Calcium 8.3 mg/dL (7.8-10.44); Carbon Dioxide 35 mmol/L (22-29); Chloride 98 mmol/L (98-107); Estimated GFR 133; Globulin 2.6 g/dL (2.4-3.5); Glucose 82 mg/dL (70-105); Iron 16 ug/dL (65-175); Iron Binding Capacity, Total 144 mcg/dL (261-462); Lipase 67 U/L (8-78); Potassium 3.1 mmol/L (3.5-5.1); Protein, Total 5.3 g/dL (6.0-8.3); Sodium 145 mmol/L (136-145)
[2022-10-20] MEDS ORDERED: MAGNESIUM SULFATE IVPB SCH (09:00)
[2022-10-20] MEDS ORDERED: SODIUM CHLORIDE 0.9% IVPB SCH (09:00)
[2022-10-20] MEDS ORDERED: POTASSIUM CHLORIDE IVPB SCH (09:00)
[2022-10-20] MEDS: Amantadine HCl 100 mg Capsule PO SCH (09:14)
[2022-10-20] MEDS: Valproate Sodium 250 mg/5 ml UD Cup PO SCH (09:15)
[2022-10-20] MEDS: FLUoxetine HCl 20 MG/5 ML UDCUP PO SCH (09:15)
[2022-10-20] MEDS: cloNIDine 0.1 MG TAB PO SCH ×2 (09:15→20:19)
[2022-10-20] MEDS: Polyethylene Glycol 3350 17 GM Packet PO SCH ×2 (09:15→20:20)
[2022-10-20] MEDS: D5 1/2 NS w/10 mEq KCl 1,000 ML/1,000 ML BAG IV SCH (09:43)
[2022-10-20] MEDS: Pantoprazole 40 MG VIAL IVP SCH (09:43)
[2022-10-20] MEDS: Polyvinyl Alcohol 1.4%/Povidone 0.6% Opth Drops EA EYE SCH ×2 (09:43→22:12)
[2022-10-20] MEDS: Metoclopramide HCl 10 MG/2 ML VIAL IVP SCH ×2 (11:31→19:48)
[2022-10-20] MEDS: Arformoterol 15 MCG/2 ML NEB NEB SCH ×3 (15:35→18:19)
[2022-10-20] MEDS: Budesonide 0.5 MG/2 ML NEB NEB SCH ×3 (15:36→18:24)
[2022-10-21] MEDS: Metoclopramide HCl 10 MG/2 ML VIAL IVP SCH ×3 (03:26→20:42)
[2022-10-21 04:58] LABS: ALT (SGPT) 15 U/L (8-55); AST (SGOT) 24 U/L (5-34); Albumin 2.5 g/dL (3.5-5.0); Alkaline Phosphatase 61 U/L (40-110); Anion Gap 14 mmol/L (10-20); BUN (Urea Nitrogen) 14 mg/dL (8.9-20.6); Bilirubin, Total 0.6 mg/dL (0.2-1.2); Calc. Creatinine Clearance 287 mL/min (70-130); Calcium 8.9 mg/dL (7.8-10.44); Carbon Dioxide 35 mmol/L (22-29); Chloride 99 mmol/L (98-107); Estimated GFR 136; Globulin 3.5 g/dL (2.4-3.5); Glucose 90 mg/dL (70-105); Magnesium 2.1 mg/dL (1.6-2.6); Potassium 3.4 mmol/L (3.5-5.1); Sodium 145 mmol/L (136-145)
[2022-10-21 05:00] LABS: Anisocytosis SLIGHT = 6-15 cells (100X) (0-5/hpf); Band 11 % (5-11); Eosinophils 5 % (0-10); Hemoglobin 8.2 g/dL (14.0-18.0); Lymphocytes 38 % (21-51); MDiff Complete? YES; Macrocytosis MODERATE=16-30 cells (100X) (0-5/hpf); Mean Corpuscular HGB CONC 32.9 g/dL (32.0-36.0); Mean Corpuscular Hemoglobin 39.4 pg (27.0-31.0); Mean Platelet Volume 7.3 fL (7.4-10.4); Monocytes 8 % (0-10); Myelocyte 2 % (0-0); Neutrophil 35 % (42-75); Nucleated RBC (Manual Ct) 1 % (0); Ovalocytes SLIGHT = 2-5 cells (100X) (0-1/hpf); Platelet Count 143 10x3/uL (130-400); Platelet Morphology Comment Appears Adequate; RBC Distribution Width 14.7 % (11.5-14.5); Red Blood Cell (RBC) Count 2.07 mill/uL (4.70-6.10)
[2022-10-21] MEDS: Piperacillin/Tazobactam 3.375 GM in Sodium Chloride 0.9% 100 ML IVPB SCH ×3 (05:40→22:18)
[2022-10-21] MEDS: D5 1/2 NS w/10 mEq KCl 1,000 ML/1,000 ML BAG IV SCH ×2 (05:41)
[2022-10-21] MEDS: Budesonide 0.5 MG/2 ML NEB NEB SCH ×2 (07:59→18:43)
[2022-10-21] MEDS: Arformoterol 15 MCG/2 ML NEB NEB SCH ×2 (08:00→18:42)
[2022-10-21] MEDS ORDERED: Potassium Phosphate 30 MMOL in Sodium Chloride 0.9% 250 ML 250 ML IVPB SCH (08:00)
[2022-10-21] MEDS: Ondansetron PF 4 MG/2 ML Vial IVP PRN (09:05)
[2022-10-21] MEDS: Amantadine HCl 100 mg Capsule PO SCH (09:08)
[2022-10-21] MEDS: FLUoxetine HCl 20 MG/5 ML UDCUP PO SCH (09:08)
[2022-10-21] MEDS: Ketorolac Tromethamine 30 MG/ML VIAL IVP PRN (09:09)
[2022-10-21] MEDS: cloNIDine 0.1 MG TAB PO SCH ×2 (09:11→20:43)
[2022-10-21] MEDS: Polyethylene Glycol 3350 17 GM Packet PO SCH ×2 (09:12→20:43)
[2022-10-21] MEDS: Pantoprazole 40 MG VIAL IVP SCH (09:12)
[2022-10-21] MEDS ORDERED: Amantadine HCl 10 mg/ml Oral Solution PO SCH (10:15)
[2022-10-21] MEDS: Polyvinyl Alcohol 1.4%/Povidone 0.6% Opth Drops EA EYE SCH ×2 (11:45→22:52)
[2022-10-21 15:15] LABS: Methylmalonic Acid 201 nmol/L (0-378)
[2022-10-22] MEDS: D5 1/2 NS w/10 mEq KCl 1,000 ML/1,000 ML BAG IV SCH (03:13)
[2022-10-22] MEDS: Metoclopramide HCl 10 MG/2 ML VIAL IVP SCH ×3 (03:15→18:17)
[2022-10-22] MEDS: Piperacillin/Tazobactam 3.375 GM in Sodium Chloride 0.9% 100 ML IVPB SCH ×3 (06:07→21:03)
[2022-10-22] MEDS: Budesonide 0.5 MG/2 ML NEB NEB SCH ×2 (07:31→18:18)
[2022-10-22] MEDS: Arformoterol 15 MCG/2 ML NEB NEB SCH ×2 (07:35→18:17)
[2022-10-22 07:42] LABS: Hemoglobin 7.8 g/dL (14.0-18.0); Mean Corpuscular HGB CONC 33.6 g/dL (32.0-36.0); Mean Corpuscular Hemoglobin 40.1 pg (27.0-31.0); Mean Platelet Volume 7.6 fL (7.4-10.4); Platelet Count 138 10x3/uL (130-400); RBC Distribution Width 14.7 % (11.5-14.5); Red Blood Cell (RBC) Count 1.94 mill/uL (4.70-6.10); White Blood Cell (WBC) Count 9.8 10x3/uL (4.8-10.8)
[2022-10-22 07:50] LABS: ALT (SGPT) 13 U/L (8-55); AST (SGOT) 19 U/L (5-34); Albumin 2.5 g/dL (3.5-5.0); Alkaline Phosphatase 65 U/L (40-110); Anion Gap 14 mmol/L (10-20); BUN (Urea Nitrogen) 13 mg/dL (8.9-20.6); Bilirubin, Total 0.5 mg/dL (0.2-1.2); Calc. Creatinine Clearance 298 mL/min (70-130); Calcium 8.5 mg/dL (7.8-10.44); Carbon Dioxide 36 mmol/L (22-29); Chloride 100 mmol/L (98-107); Estimated GFR 136; Globulin 3.3 g/dL (2.4-3.5); Glucose 118 mg/dL (70-105); Potassium 3.1 mmol/L (3.5-5.1); Protein, Total 5.8 g/dL (6.0-8.3); Sodium 147 mmol/L (136-145)
[2022-10-22 08:34] LABS: Band 16 % (5-11); Eosinophils 5 % (0-10); Lymphocytes 37 % (21-51); MDiff Complete? YES; Macrocytosis MODERATE=16-30 cells (100X) (0-5/hpf); Metamyelocyte 1 % (0-0); Monocytes 6 % (0-10); Myelocyte 1 % (0-0); Neutrophil 34 % (42-75); Platelet Morphology Comment Appears Adequate; Polychromasia SLIGHT = 2-3 cells (100X) (0-2/hpf)
[2022-10-22] MEDS: Ferrous Gluconate 324 MG TAB PO SCH (08:52)
[2022-10-22] MEDS: cloNIDine 0.1 MG TAB PO SCH ×2 (08:53→20:27)
[2022-10-22] MEDS: Polyvinyl Alcohol 1.4%/Povidone 0.6% Opth Drops EA EYE SCH ×2 (08:54→21:02)
[2022-10-22] MEDS: Polyethylene Glycol 3350 17 GM Packet PO SCH ×2 (08:54→20:28)
[2022-10-22] MEDS: Amantadine HCl 10 mg/ml Oral Solution PO SCH (08:56)
[2022-10-22] MEDS ORDERED: Potassium Chloride 20 MEQ TAB PO SCH (10:30)
[2022-10-22] MEDS: FLUoxetine HCl 20 MG/5 ML UDCUP PO SCH (10:34)
[2022-10-22] MEDS: Ondansetron PF 4 MG/2 ML Vial IVP PRN ×2 (13:52→20:18)
[2022-10-22] MEDS ORDERED: Lorazepam 2 MG/ML VIAL SLOW IVP SCH (18:15)
[2022-10-22] MEDS: Ketorolac Tromethamine 30 MG/ML VIAL IVP PRN (20:18)
[2022-10-22] MEDS: Scopolamine 1.5 mg/72 hour Patch TD SCH (20:29)
[2022-10-22 20:55] LABS: Hemoglobin 7.9 g/dL (14.0-18.0); Mean Corpuscular HGB CONC 30.4 g/dL (32.0-36.0); Mean Corpuscular Hemoglobin 36.4 pg (27.0-31.0); Mean Platelet Volume 8.2 fL (7.4-10.4); Platelet Count 135 10x3/uL (130-400); RBC Distribution Width 14.9 % (11.5-14.5); Red Blood Cell (RBC) Count 2.16 mill/uL (4.70-6.10); White Blood Cell (WBC) Count 11.8 10x3/uL (4.8-10.8)
[2022-10-22 21:04] LABS: Lactic Acid 0.8 mmol/L (0.5-2.2)
[2022-10-22 21:09] LABS: ALT (SGPT) 15 U/L (8-55); AST (SGOT) 24 U/L (5-34); Albumin 2.7 g/dL (3.5-5.0); Alkaline Phosphatase 74 U/L (40-110); BUN (Urea Nitrogen) 12 mg/dL (8.9-20.6); Bilirubin, Total 0.5 mg/dL (0.2-1.2); Calc. Creatinine Clearance 303 mL/min (70-130); Calcium 8.3 mg/dL (7.8-10.44); Estimated GFR 137; Glucose 110 mg/dL (70-105); Protein, Total 5.7 g/dL (6.0-8.3)
[2022-10-22 21:18] LABS: Anion Gap 15 mmol/L (10-20); Carbon Dioxide 35 mmol/L (22-29); Chloride 101 mmol/L (98-107); Potassium 3.6 mmol/L (3.5-5.1); Sodium 147 mmol/L (136-145)
[2022-10-22 21:30] LABS: Anisocytosis SLIGHT = 6-15 cells (100X) (0-5/hpf); Band 1 % (5-11); Eosinophils 3 % (0-10); Lymphocytes 21 % (21-51); MDiff Complete? YES; Macrocytosis MODERATE=16-30 cells (100X) (0-5/hpf); Metamyelocyte 11 % (0-0); Monocytes 2 % (0-10); Myelocyte 1 % (0-0); Neutrophil 60 % (42-75); Nucleated RBC (Manual Ct) 1 % (0); Platelet Morphology Comment Appears Adequate; Polychromasia SLIGHT = 2-3 cells (100X) (0-2/hpf); Reactive Lymphocytes 1 % (0-10); Stomatocytes MODERATE= 6-15 cells (100X) (0-1/hpf)
[2022-10-23] MEDS ORDERED: Promethazine HCl 12.5 MG in Sodium Chloride 0.9% 50 ML IVPB SCH (01:00)
[2022-10-23 04:36] LABS: Hemoglobin 7.9 g/dL (14.0-18.0); Mean Corpuscular HGB CONC 31.4 g/dL (32.0-36.0); Mean Corpuscular Hemoglobin 37.9 pg (27.0-31.0); Mean Platelet Volume 7.8 fL (7.4-10.4); Platelet Count 123 10x3/uL (130-400); Red Blood Cell (RBC) Count 2.09 mill/uL (4.70-6.10); White Blood Cell (WBC) Count 9.7 10x3/uL (4.8-10.8)
[2022-10-23 04:55] LABS: ALT (SGPT) 16 U/L (8-55); AST (SGOT) 26 U/L (5-34); Albumin 2.7 g/dL (3.5-5.0); Alkaline Phosphatase 75 U/L (40-110); Anion Gap 16 mmol/L (10-20); BUN (Urea Nitrogen) 13 mg/dL (8.9-20.6); Bilirubin, Total 0.5 mg/dL (0.2-1.2); Calc. Creatinine Clearance 303 mL/min (70-130); Calcium 8.9 mg/dL (7.8-10.44); Carbon Dioxide 35 mmol/L (22-29); Chloride 100 mmol/L (98-107); Estimated GFR 137; Globulin 3.6 g/dL (2.4-3.5); Glucose 94 mg/dL (70-105); Potassium 3.6 mmol/L (3.5-5.1); Protein, Total 6.3 g/dL (6.0-8.3); Sodium 147 mmol/L (136-145)
[2022-10-23] MEDS: Piperacillin/Tazobactam 3.375 GM in Sodium Chloride 0.9% 100 ML IVPB SCH ×3 (05:44→21:20)
[2022-10-23] MEDS: Metoclopramide HCl 10 MG/2 ML VIAL IVP SCH ×3 (05:44→20:40)
[2022-10-23] MEDS: Ketorolac Tromethamine 30 MG/ML VIAL IVP PRN ×3 (05:45→22:04)
[2022-10-23] MEDS ORDERED: Potassium Chloride 20 MEQ in Premix Bag 1 BAG IVPB SCH (08:15)
[2022-10-23] MEDS: Polyvinyl Alcohol 1.4%/Povidone 0.6% Opth Drops EA EYE SCH ×2 (09:00→20:40)
[2022-10-23 09:15] LABS: Magnesium 1.9 mg/dL (1.6-2.6)
[2022-10-23] MEDS ORDERED: Bisacodyl 5 MG TAB PO PRN (09:48)
[2022-10-23 09:59] LABS: Anisocytosis SLIGHT = 6-15 cells (100X) (0-5/hpf); Band 16 % (5-11); Eosinophils 2 % (0-10); Lymphocytes 36 % (21-51); MDiff Complete? YES; Macrocytosis MODERATE=16-30 cells (100X) (0-5/hpf); Metamyelocyte 4 % (0-0); Monocytes 7 % (0-10); Myelocyte 8 % (0-0); Neutrophil 27 % (42-75); Nucleated RBC (Manual Ct) 2 % (0); Platelet Morphology Comment Appears Decreased; Polychromasia SLIGHT = 2-3 cells (100X) (0-2/hpf)
[2022-10-23] MEDS: Bisacodyl 10 MG SUPP PR SCH (10:17)
[2022-10-23] MEDS: Ondansetron PF 4 MG/2 ML Vial IVP PRN ×2 (10:17→22:04)
[2022-10-23] MEDS: Lactated Ringer's 1,000 ML IV SCH ×2 (10:18→16:31)
[2022-10-23] MEDS: Amantadine HCl 10 mg/ml Oral Solution PO SCH (10:19)
[2022-10-23] MEDS: cloNIDine 0.1 MG TAB PO SCH ×2 (10:19→20:41)
[2022-10-23] MEDS: FLUoxetine HCl 20 MG/5 ML UDCUP PO SCH (10:21)
[2022-10-23] MEDS: Polyethylene Glycol 3350 17 GM Packet PO SCH ×2 (10:21→20:41)
[2022-10-23] MEDS ORDERED: Pantoprazole 40 MG VIAL IVP SCH (10:30)
[2022-10-23] MEDS: Budesonide 0.5 MG/2 ML NEB NEB SCH ×2 (11:31→18:34)
[2022-10-23] MEDS: Arformoterol 15 MCG/2 ML NEB NEB SCH ×2 (11:31→18:33)
[2022-10-23] MEDS: Ferrous Gluconate 324 MG TAB PO SCH (11:32)
[2022-10-23] MEDS: Acetaminophen 650 MG Suppository PR PRN (11:53)
[2022-10-23] MEDS ORDERED: Labetalol HCl 100 MG/20 ML VIAL SLOW IVP PRN (23:46)
[2022-10-24] MEDS: Metoclopramide HCl 10 MG/2 ML VIAL IVP SCH ×3 (02:58→18:08)
[2022-10-24] MEDS: Lactated Ringer's 1,000 ML IV SCH (02:59)
[2022-10-24 04:37] LABS: Hemoglobin 6.9 g/dL (14.0-18.0); Mean Corpuscular HGB CONC 32.7 g/dL (32.0-36.0); Mean Corpuscular Hemoglobin 39.2 pg (27.0-31.0); Mean Platelet Volume 7.8 fL (7.4-10.4); Platelet Count 109 10x3/uL (130-400); RBC Distribution Width 14.7 % (11.5-14.5); Red Blood Cell (RBC) Count 1.75 mill/uL (4.70-6.10); White Blood Cell (WBC) Count 7.7 10x3/uL (4.8-10.8)
[2022-10-24 04:42] LABS: ALT (SGPT) 12 U/L (8-55); AST (SGOT) 21 U/L (5-34); Albumin 2.3 g/dL (3.5-5.0); Alkaline Phosphatase 61 U/L (40-110); Anion Gap 13 mmol/L (10-20); BUN (Urea Nitrogen) 13 mg/dL (8.9-20.6); Bilirubin, Total 0.5 mg/dL (0.2-1.2); Calc. Creatinine Clearance 348 mL/min (70-130); Calcium 7.9 mg/dL (7.8-10.44); Carbon Dioxide 32 mmol/L (22-29); Chloride 102 mmol/L (98-107); Estimated GFR 143; Glucose 76 mg/dL (70-105); Potassium 3.5 mmol/L (3.5-5.1); Protein, Total 5.3 g/dL (6.0-8.3); Sodium 143 mmol/L (136-145)
[2022-10-24 05:24] LABS: Band 25 % (5-11); Eosinophils 2 % (0-10); Lymphocytes 41 % (21-51); MDiff Complete? YES; Macrocytosis MODERATE=16-30 cells (100X) (0-5/hpf); Metamyelocyte 2 % (0-0); Monocytes 11 % (0-10); Myelocyte 4 % (0-0); Neutrophil 15 % (42-75); Platelet Morphology Comment Appears Decreased
[2022-10-24] MEDS: Piperacillin/Tazobactam 3.375 GM in Sodium Chloride 0.9% 100 ML IVPB SCH ×3 (05:56→22:53)
[2022-10-24 06:18] LABS: Hemoglobin 7.8 g/dL (14.0-18.0); Mean Corpuscular HGB CONC 34.4 g/dL (32.0-36.0); Mean Corpuscular Hemoglobin 40.5 pg (27.0-31.0); Mean Platelet Volume 7.6 fL (7.4-10.4); Platelet Count 124 10x3/uL (130-400); RBC Distribution Width 14.7 % (11.5-14.5); Red Blood Cell (RBC) Count 1.91 mill/uL (4.70-6.10); White Blood Cell (WBC) Count 9.2 10x3/uL (4.8-10.8)
[2022-10-24] MEDS: Arformoterol 15 MCG/2 ML NEB NEB SCH ×2 (07:17→18:31)
[2022-10-24] MEDS: Budesonide 0.5 MG/2 ML NEB NEB SCH ×2 (07:18→18:31)
[2022-10-24] MEDS: Amantadine HCl 10 mg/ml Oral Solution PO SCH (07:42)
[2022-10-24] MEDS: cloNIDine 0.1 MG TAB PO SCH ×2 (07:42→20:03)
[2022-10-24] MEDS: FLUoxetine HCl 20 MG/5 ML UDCUP PO SCH (07:43)
[2022-10-24] MEDS: Polyethylene Glycol 3350 17 GM Packet PO SCH ×2 (07:43→20:03)
[2022-10-24 08:32] LABS: Magnesium 1.6 mg/dL (1.6-2.6)
[2022-10-24] MEDS: Bisacodyl 10 MG SUPP PR SCH ×2 (08:39→18:08)
[2022-10-24] MEDS: Polyvinyl Alcohol 1.4%/Povidone 0.6% Opth Drops EA EYE SCH ×2 (08:45→20:50)
[2022-10-24] MEDS: Pantoprazole 40 MG VIAL IVP SCH (08:46)
[2022-10-24] MEDS: Ketorolac Tromethamine 30 MG/ML VIAL IVP PRN ×2 (08:59→20:57)
[2022-10-24] MEDS: Ondansetron PF 4 MG/2 ML Vial IVP PRN (09:00)
[2022-10-24] MEDS ORDERED: Magnesium Sulfate In Water 4 GM in Premix Bag 1 BAG IVPB SCH (10:15)
[2022-10-24] MEDS ORDERED: Potassium Phosphate 30 MMOL in Sodium Chloride 0.9% 250 ML 250 ML IVPB SCH (11:00)
[2022-10-24] MEDS: Multivitamins, Adult 10 ML, TRACE ELEMENT CONCENTRATE 1 ML in D15W-AA 5% with Lytes 2,0... IV SCH (15:05)
[2022-10-24 20:38] LABS: Anion Gap 11 mmol/L (10-20); BUN (Urea Nitrogen) 18 mg/dL (8.9-20.6); Calc. Creatinine Clearance 285 mL/min (70-130); Calcium 8.5 mg/dL (7.8-10.44); Carbon Dioxide 36 mmol/L (22-29); Chloride 98 mmol/L (98-107); Estimated GFR 135; Glucose 140 mg/dL (70-105); Magnesium 2.5 mg/dL (1.6-2.6); Phosphorus 4.5 mg/dL (2.3-4.7); Potassium 3.6 mmol/L (3.5-5.1); Sodium 141 mmol/L (136-145)
[2022-10-24] MEDS ORDERED: Albumin 25% 25 GM/100 ML BOT IVPB SCH (23:30)
[2022-10-25] MEDS: Metoclopramide HCl 10 MG/2 ML VIAL IVP SCH ×3 (03:53→18:30)
[2022-10-25 04:22] LABS: Hemoglobin 7.3 g/dL (14.0-18.0); Mean Corpuscular HGB CONC 32.5 g/dL (32.0-36.0); Mean Corpuscular Hemoglobin 39.4 pg (27.0-31.0); Mean Platelet Volume 7.9 fL (7.4-10.4); Platelet Count 156 10x3/uL (130-400); RBC Distribution Width 14.9 % (11.5-14.5); Red Blood Cell (RBC) Count 1.85 mill/uL (4.70-6.10); White Blood Cell (WBC) Count 8.5 10x3/uL (4.8-10.8)
[2022-10-25 04:32] LABS: ALT (SGPT) 13 U/L (8-55); AST (SGOT) 18 U/L (5-34); Albumin 2.6 g/dL (3.5-5.0); Alkaline Phosphatase 60 U/L (40-110); Anion Gap 11 mmol/L (10-20); BUN (Urea Nitrogen) 17 mg/dL (8.9-20.6); Bilirubin, Total 0.3 mg/dL (0.2-1.2); Calc. Creatinine Clearance 304 mL/min (70-130); Calcium 8.2 mg/dL (7.8-10.44); Carbon Dioxide 35 mmol/L (22-29); Chloride 100 mmol/L (98-107); Estimated GFR 138; Globulin 3.2 g/dL (2.4-3.5); Glucose 132 mg/dL (70-105); Magnesium 2.2 mg/dL (1.6-2.6); Potassium 3.4 mmol/L (3.5-5.1); Protein, Total 5.8 g/dL (6.0-8.3); Sodium 143 mmol/L (136-145)
[2022-10-25] MEDS: Piperacillin/Tazobactam 3.375 GM in Sodium Chloride 0.9% 100 ML IVPB SCH ×3 (05:37→22:15)
[2022-10-25 06:46] LABS: Anisocytosis SLIGHT = 6-15 cells (100X) (0-5/hpf); Band 3 % (5-11); Eosinophils 1 % (0-10); Hypochromia SLIGHT = 6-15 cells (100X) (0-5/hpf); Lymphocytes 53 % (21-51); MDiff Complete? YES; Macrocytosis MODERATE=16-30 cells (100X) (0-5/hpf); Metamyelocyte 2 % (0-0); Monocytes 4 % (0-10); Myelocyte 5 % (0-0); Neutrophil 32 % (42-75); Platelet Morphology Comment Appears Adequate; Polychromasia SLIGHT = 2-3 cells (100X) (0-2/hpf)
[2022-10-25] MEDS: Arformoterol 15 MCG/2 ML NEB NEB SCH ×2 (07:01→18:23)
[2022-10-25] MEDS: Budesonide 0.5 MG/2 ML NEB NEB SCH ×2 (07:01→18:24)
[2022-10-25 07:11] LABS: Phosphorus 3.5 mg/dL (2.3-4.7)
[2022-10-25] MEDS: Amantadine HCl 10 mg/ml Oral Solution PO SCH (07:31)
[2022-10-25] MEDS: FLUoxetine HCl 20 MG/5 ML UDCUP PO SCH (07:32)
[2022-10-25] MEDS: cloNIDine 0.1 MG TAB PO SCH ×2 (07:32→22:05)
[2022-10-25] MEDS: Polyethylene Glycol 3350 17 GM Packet PO SCH ×2 (07:32→22:05)
[2022-10-25] MEDS ORDERED: Potassium Chloride 20 MEQ in Premix Bag 1 BAG IVPB SCH (08:00)
[2022-10-25] MEDS: Polyvinyl Alcohol 1.4%/Povidone 0.6% Opth Drops EA EYE SCH ×2 (08:32→22:15)
[2022-10-25] MEDS: Pantoprazole 40 MG VIAL IVP SCH (08:32)
[2022-10-25] MEDS: Bisacodyl 10 MG SUPP PR SCH (08:32)
[2022-10-25] MEDS ORDERED: Ketorolac Tromethamine 30 MG/ML VIAL IVP SCH (09:00)
[2022-10-25] MEDS ORDERED: Acetaminophen/Codeine 30-300mg Tablet PO PRN (09:09)
[2022-10-25] MEDS ORDERED: Bisacodyl 10 MG SUPP PR PRN (10:17)
[2022-10-25] MEDS: Multivitamins, Adult 10 ML, TRACE ELEMENT CONCENTRATE 1 ML in D15W-AA 5% with Lytes 2,0... IV SCH (15:27)
[2022-10-25] MEDS ORDERED: Lidocaine 1% w/Epinephrine 1:100K 20 ML VIAL IJ SCH (19:15)
[2022-10-26] MEDS: Metoclopramide HCl 10 MG/2 ML VIAL IVP SCH ×3 (02:40→21:06)
[2022-10-26 04:31] LABS: Hemoglobin 7.6 g/dL (14.0-18.0); Mean Corpuscular HGB CONC 33.1 g/dL (32.0-36.0); Mean Corpuscular Hemoglobin 39.9 pg (27.0-31.0); Mean Platelet Volume 7.8 fL (7.4-10.4); Platelet Count 296 10x3/uL (130-400); RBC Distribution Width 14.7 % (11.5-14.5); Red Blood Cell (RBC) Count 1.91 mill/uL (4.70-6.10); White Blood Cell (WBC) Count 15.3 10x3/uL (4.8-10.8)
[2022-10-26 04:45] LABS: Anion Gap 12 mmol/L (10-20); BUN (Urea Nitrogen) 12 mg/dL (8.9-20.6); Calc. Creatinine Clearance 310 mL/min (70-130); Carbon Dioxide 33 mmol/L (22-29); Chloride 97 mmol/L (98-107); Sodium 138 mmol/L (136-145)
[2022-10-26 04:46] LABS: ALT (SGPT) 18 U/L (8-55); AST (SGOT) 33 U/L (5-34); Albumin 2.7 g/dL (3.5-5.0); Alkaline Phosphatase 73 U/L (40-110); Bilirubin, Total 0.3 mg/dL (0.2-1.2); Calcium 8.4 mg/dL (7.8-10.44); Estimated GFR 138; Globulin 3.5 g/dL (2.4-3.5); Glucose 110 mg/dL (70-105); Protein, Total 6.2 g/dL (6.0-8.3)
[2022-10-26] MEDS: Piperacillin/Tazobactam 3.375 GM in Sodium Chloride 0.9% 100 ML IVPB SCH ×3 (05:15→21:06)
[2022-10-26 05:32] LABS: Band 13 % (5-11); Eosinophils 1 % (0-10); Lymphocytes 37 % (21-51); MDiff Complete? YES; Metamyelocyte 2 % (0-0); Monocytes 8 % (0-10); Myelocyte 8 % (0-0); Neutrophil 31 % (42-75); Nucleated RBC (Manual Ct) 2 % (0)
[2022-10-26] MEDS: Arformoterol 15 MCG/2 ML NEB NEB SCH ×2 (07:25→18:04)
[2022-10-26] MEDS: Budesonide 0.5 MG/2 ML NEB NEB SCH ×2 (07:28→18:04)
[2022-10-26] MEDS: Pantoprazole 40 MG VIAL IVP SCH (09:38)
[2022-10-26] MEDS: Polyvinyl Alcohol 1.4%/Povidone 0.6% Opth Drops EA EYE SCH ×2 (09:39→21:19)
[2022-10-26] MEDS: cloNIDine 0.1 MG TAB PO SCH (09:39)
[2022-10-26] MEDS: Amantadine HCl 10 mg/ml Oral Solution PO SCH (09:39)
[2022-10-26] MEDS: Bisacodyl 10 MG SUPP PR SCH ×2 (09:39→09:58)
[2022-10-26] MEDS: FLUoxetine HCl 20 MG/5 ML UDCUP PO SCH (10:15)
[2022-10-26] MEDS: Polyethylene Glycol 3350 17 GM Packet PO SCH ×2 (10:15→20:15)
[2022-10-26] MEDS: cloNIDine 0.2mg/24 Hour PATCH TD SCH (11:26)
[2022-10-26] MEDS: Lactated Ringer's 1,000 ML IV SCH (11:42)
[2022-10-26] MEDS: Multivitamins, Adult 10 ML, TRACE ELEMENT CONCENTRATE 1 ML in D15W-AA 5% with Lytes 2,0... IV SCH (14:29)
[2022-10-27] MEDS: Lactated Ringer's 1,000 ML IV SCH (00:58)
[2022-10-27] MEDS: Metoclopramide HCl 10 MG/2 ML VIAL IVP SCH ×3 (02:50→20:29)
[2022-10-27 04:34] LABS: #Basophils 0.1 thou/uL (0.0-0.2); #Eosinphils 0.2 thou/uL (0.0-0.7); #Monocytes 1.9 thou/uL (0.11-0.59); #Neutrophils 7.5 thou/uL (1.40-6.50); %Basophils 0.4 % (0.0-1.0); %Eosinophils 1.3 % (0.0-10.0); %Monocytes 9.8 % (0.0-10.0); %Neutrophils 39.2 % (42.0-75.0); Hemoglobin 7.7 g/dL (14.0-18.0); Mean Corpuscular Hemoglobin 37.4 pg (27.0-31.0); Mean Corpuscular Volume 120.4 fl (78.0-98.0); Mean Platelet Volume 10.2 fL (7.4-10.4); Platelet Count 451 10x3/uL (130-400); RBC Distribution Width 15.2 % (11.5-14.5); Red Blood Cell (RBC) Count 2.06 mill/uL (4.70-6.10); White Blood Cell (WBC) Count 18.9 10x3/uL (4.8-10.8)
[2022-10-27 04:52] LABS: ALT (SGPT) 18 U/L (8-55); AST (SGOT) 27 U/L (5-34); Albumin 2.9 g/dL (3.5-5.0); Alkaline Phosphatase 82 U/L (40-110); Anion Gap 9 mmol/L (10-20); BUN (Urea Nitrogen) 12 mg/dL (8.9-20.6); Bilirubin, Total 0.4 mg/dL (0.2-1.2); Calc. Creatinine Clearance 319 mL/min (70-130); Calcium 8.8 mg/dL (7.8-10.44); Carbon Dioxide 35 mmol/L (22-29); Chloride 97 mmol/L (98-107); Estimated GFR 139; Globulin 3.7 g/dL (2.4-3.5); Glucose 114 mg/dL (70-105); Potassium 4.1 mmol/L (3.5-5.1); Protein, Total 6.6 g/dL (6.0-8.3); Sodium 137 mmol/L (136-145)
[2022-10-27 05:35] LABS: Anisocytosis MODERATE=16-30 cells HPF (0-5); Band 5 % (5-11); CellaVision Operator ID lab.sh2; Eosinophils 1 % (0-10); Hypochromia MODERATE=16-30 cells HPF (0-5); Lymphocytes 33 % (21-51); Macrocytosis MODERATE=16-30 cells HPF (0-5); Metamyelocyte 4 % (0-0); Microcytosis SLIGHT = 6-15 cells HPF (0-5); Monocytes 15 % (0-10); Neutrophil 43 % (42-75); Nucleated RBC (Manual Ct) 1 % (0); Platelet Morphology Comment Platelets Increased; Polychromasia SLIGHT = 2-3 cells HPF (0-2); Smudge Cells 12.6 %; Total Cell Count 103; Vacuoles SLIGHT
[2022-10-27] MEDS: Piperacillin/Tazobactam 3.375 GM in Sodium Chloride 0.9% 100 ML IVPB SCH ×3 (05:49→22:34)
[2022-10-27] MEDS: Arformoterol 15 MCG/2 ML NEB NEB SCH ×2 (07:17→18:24)
[2022-10-27] MEDS: Budesonide 0.5 MG/2 ML NEB NEB SCH ×2 (07:19→18:24)
[2022-10-27 08:05] LABS: Phosphorus 3.8 mg/dL (2.3-4.7)
[2022-10-27 08:06] LABS: Magnesium 1.7 mg/dL (1.6-2.6)
[2022-10-27] MEDS: Bisacodyl 10 MG SUPP PR SCH (08:26)
[2022-10-27] MEDS: Pantoprazole 40 MG VIAL IVP SCH (08:27)
[2022-10-27] MEDS: Polyvinyl Alcohol 1.4%/Povidone 0.6% Opth Drops EA EYE SCH ×2 (08:27→20:30)
[2022-10-27] MEDS: Polyethylene Glycol 3350 17 GM Packet PO SCH ×2 (08:27→20:30)
[2022-10-27] MEDS: Amantadine HCl 10 mg/ml Oral Solution PO SCH (08:27)
[2022-10-27] MEDS: FLUoxetine HCl 20 MG/5 ML UDCUP PO SCH (08:27)
[2022-10-27] MEDS: Multivitamins, Adult 10 ML, TRACE ELEMENT CONCENTRATE 1 ML in D15W-AA 5% with Lytes 2,0... IV SCH (14:48)
[2022-10-28] MEDS: Metoclopramide HCl 10 MG/2 ML VIAL IVP SCH ×3 (02:30→19:05)
[2022-10-28 04:38] LABS: #Basophils 0.1 thou/uL (0.0-0.2); #Eosinphils 0.2 thou/uL (0.0-0.7); #Neutrophils 9.4 thou/uL (1.40-6.50); %Basophils 0.3 % (0.0-1.0); %Neutrophils 43.5 % (42.0-75.0); Hemoglobin 7.7 g/dL (14.0-18.0); Mean Corpuscular HGB CONC 30.4 g/dL (32.0-36.0); Mean Corpuscular Hemoglobin 36.8 pg (27.0-31.0); Mean Corpuscular Volume 121.1 fl (78.0-98.0); Mean Platelet Volume 10.4 fL (7.4-10.4); RBC Distribution Width 15.8 % (11.5-14.5); Red Blood Cell (RBC) Count 2.09 mill/uL (4.70-6.10); White Blood Cell (WBC) Count 21.7 10x3/uL (4.8-10.8)
[2022-10-28 04:43] LABS: Platelet Count 638 10x3/uL (130-400)
[2022-10-28 04:44] LABS: Manual Diff?? YES
[2022-10-28 05:09] LABS: ALT (SGPT) 20 U/L (8-55); AST (SGOT) 29 U/L (5-34); Albumin 2.9 g/dL (3.5-5.0); Alkaline Phosphatase 96 U/L (40-110); Anion Gap 14 mmol/L (10-20); BUN (Urea Nitrogen) 20 mg/dL (8.9-20.6); Bilirubin, Total 0.4 mg/dL (0.2-1.2); Calc. Creatinine Clearance 260 mL/min (70-130); Carbon Dioxide 31 mmol/L (22-29); Chloride 98 mmol/L (98-107); Estimated GFR 132; Globulin 3.9 g/dL (2.4-3.5); Glucose 92 mg/dL (70-105); Potassium 4.2 mmol/L (3.5-5.1); Protein, Total 6.8 g/dL (6.0-8.3); Sodium 139 mmol/L (136-145)
[2022-10-28 05:34] LABS: Anisocytosis SLIGHT = 6-15 cells HPF (0-5); Band 2 % (5-11); CellaVision Operator ID lab.abc; Eosinophils 2 % (0-10); Lymphocytes 30 % (21-51); Macrocytosis SLIGHT = 6-15 cells HPF (0-5); Metamyelocyte 2 % (0-0); Monocytes 8 % (0-10); Myelocyte 4 % (0-0); Neutrophil 52 % (42-75); Nucleated RBC (Manual Ct) 5 % (0); Platelet Morphology Comment Platelets Increased; Polychromasia SLIGHT = 2-3 cells HPF (0-2); Smudge Cells 16.8 %; Total Cell Count 101
[2022-10-28] MEDS: Arformoterol 15 MCG/2 ML NEB NEB SCH ×2 (07:11→18:44)
[2022-10-28] MEDS: Budesonide 0.5 MG/2 ML NEB NEB SCH ×2 (07:13→18:44)
[2022-10-28] MEDS: Amantadine HCl 10 mg/ml Oral Solution PO SCH (08:53)
[2022-10-28] MEDS: Pantoprazole 40 MG VIAL IVP SCH (08:53)
[2022-10-28] MEDS: FLUoxetine HCl 20 MG/5 ML UDCUP PO SCH (08:53)
[2022-10-28] MEDS: Bisacodyl 10 MG SUPP PR SCH (08:54)
[2022-10-28] MEDS: Polyethylene Glycol 3350 17 GM Packet PO SCH ×2 (08:54→20:47)
[2022-10-28] MEDS: Polyvinyl Alcohol 1.4%/Povidone 0.6% Opth Drops EA EYE SCH (10:40)
[2022-10-28 13:15] LABS: Bacteria/HPF None Seen HPF (None Seen); Bilirubin Negative (Negative); Blood, Urine Negative (Negative); CAUTI Indications for Culture Alt mental st,lethar; Clarity Clear (Clear); Glucose, Urine (Dipstick) Normal (Negative); Ketone, Urine Negative (Negative); Leukocyte Negative Leu/uL (Negative); Nitrite Negative (Negative); Protein, Urine (Dipstick) Negative (Neg-Trace); RBC/HPF 0-3 HPF (0-3); Squamous Epithelial 0-3 HPF (0-3); Urobilinogen 12 mg/dL (Less than 2); WBC/HPF 0-3 HPF (0-3)
[2022-10-28 13:17] LABS: Urine Culture Reflex No No
[2022-10-28] MEDS: Acetaminophen 650 MG Suppository PR PRN (20:47)
[2022-10-29] MEDS: Polyvinyl Alcohol 1.4%/Povidone 0.6% Opth Drops EA EYE SCH ×3 (01:31→21:40)
[2022-10-29] MEDS: Metoclopramide HCl 10 MG/2 ML VIAL IVP SCH ×3 (02:09→18:44)
[2022-10-29 04:03] LABS: #Basophils 0.2 thou/uL (0.0-0.2); #Eosinphils 0.2 thou/uL (0.0-0.7); #Monocytes 2.2 thou/uL (0.11-0.59); #Neutrophils 9.5 thou/uL (1.40-6.50); %Basophils 0.7 % (0.0-1.0); %Eosinophils 0.8 % (0.0-10.0); %Monocytes 9.9 % (0.0-10.0); %Neutrophils 42.1 % (42.0-75.0); Hemoglobin 7.7 g/dL (14.0-18.0); Mean Corpuscular HGB CONC 30.7 g/dL (32.0-36.0); Mean Corpuscular Volume 120.7 fl (78.0-98.0); Mean Platelet Volume 10.3 fL (7.4-10.4); Platelet Count 675 10x3/uL (130-400); RBC Distribution Width 16.6 % (11.5-14.5); Red Blood Cell (RBC) Count 2.08 mill/uL (4.70-6.10); White Blood Cell (WBC) Count 22.6 10x3/uL (4.8-10.8)
[2022-10-29 04:05] LABS: Manual Diff?? YES
[2022-10-29 04:27] LABS: ALT (SGPT) 19 U/L (8-55); AST (SGOT) 29 U/L (5-34); Alkaline Phosphatase 91 U/L (40-110); Anion Gap 12 mmol/L (10-20); BUN (Urea Nitrogen) 22 mg/dL (8.9-20.6); Bilirubin, Total 0.5 mg/dL (0.2-1.2); Calc. Creatinine Clearance 281 mL/min (70-130); Carbon Dioxide 29 mmol/L (22-29); Chloride 100 mmol/L (98-107); Estimated GFR 135; Globulin 3.9 g/dL (2.4-3.5); Glucose 83 mg/dL (70-105); Potassium 4.3 mmol/L (3.5-5.1); Protein, Total 6.9 g/dL (6.0-8.3); Sodium 137 mmol/L (136-145)
[2022-10-29 04:59] LABS: Anisocytosis SLIGHT = 6-15 cells HPF (0-5); Band 7 % (5-11); CellaVision Operator ID lab.sh2; Hypochromia SLIGHT = 6-15 cells HPF (0-5); Lymphocytes 27 % (21-51); Macrocytosis MARKED = >30 cells HPF (0-5); Monocytes 14 % (0-10); Neutrophil 53 % (42-75); Nucleated RBC (Manual Ct) 5 % (0); Platelet Morphology Comment Platelets Increased; Polychromasia MODERATE = 3-4 cells HPF (0-2); Smudge Cells 15.8 %; Stomatocytes SLIGHT = 2-5 cells HPF (0-1); Total Cell Count 101
[2022-10-29] MEDS: Arformoterol 15 MCG/2 ML NEB NEB SCH ×2 (07:33→18:31)
[2022-10-29] MEDS: Budesonide 0.5 MG/2 ML NEB NEB SCH ×2 (07:34→18:31)
[2022-10-29] MEDS: Polyethylene Glycol 3350 17 GM Packet PO SCH ×2 (08:19→21:41)
[2022-10-29] MEDS: Bisacodyl 10 MG SUPP PR SCH (08:20)
[2022-10-29] MEDS ORDERED: FLUoxetine HCl 10 MG CAP PO SCH (09:00)
[2022-10-29] MEDS: Amantadine HCl 10 mg/ml Oral Solution PO SCH (09:35)
[2022-10-29] MEDS ORDERED: FLUoxetine HCl 20 MG/5 ML UDCUP PO SCH (10:30)
[2022-10-29] MEDS ORDERED: GASTROGRAFIN 30 ML BOT ONE (10:46)
[2022-10-29] MEDS ORDERED: Iopamidol-370 76% 500 ML MDV (1 ML CHARGE) ONE (10:46)
[2022-10-29] MEDS ORDERED: MD-Gastroview 120 ML BOT ONE (11:05)
[2022-10-29] MEDS: Ondansetron PF 4 MG/2 ML Vial IVP PRN (16:14)
[2022-10-29] MEDS: Lactated Ringer's 1,000 ML IV SCH (18:44)
[2022-10-30] MEDS: Metoclopramide HCl 10 MG/2 ML VIAL IVP SCH ×3 (02:56→18:08)
[2022-10-30 04:23] LABS: #Basophils 0.1 thou/uL (0.0-0.2); #Eosinphils 0.2 thou/uL (0.0-0.7); #Monocytes 1.7 thou/uL (0.11-0.59); #Neutrophils 10.4 thou/uL (1.40-6.50); %Basophils 0.5 % (0.0-1.0); %Eosinophils 0.9 % (0.0-10.0); %Lymphocytes 35.6 % (21.0-51.0); %Monocytes 8.2 % (0.0-10.0); %Neutrophils 51.1 % (42.0-75.0); Hemoglobin 7.7 g/dL (14.0-18.0); Mean Corpuscular HGB CONC 30.8 g/dL (32.0-36.0); Mean Corpuscular Hemoglobin 36.8 pg (27.0-31.0); Mean Corpuscular Volume 119.6 fl (78.0-98.0); Mean Platelet Volume 10.3 fL (7.4-10.4); Red Blood Cell (RBC) Count 2.09 mill/uL (4.70-6.10); White Blood Cell (WBC) Count 20.3 10x3/uL (4.8-10.8)
[2022-10-30 04:52] LABS: ALT (SGPT) 23 U/L (8-55); AST (SGOT) 38 U/L (5-34); Alkaline Phosphatase 115 U/L (40-110); Anion Gap 15 mmol/L (10-20); BUN (Urea Nitrogen) 17 mg/dL (8.9-20.6); Bilirubin, Total 0.4 mg/dL (0.2-1.2); Calc. Creatinine Clearance 268 mL/min (70-130); Carbon Dioxide 28 mmol/L (22-29); Chloride 96 mmol/L (98-107); Estimated GFR 135; Globulin 3.9 g/dL (2.4-3.5); Glucose 74 mg/dL (70-105); Potassium 3.8 mmol/L (3.5-5.1); Protein, Total 6.9 g/dL (6.0-8.3); Sodium 135 mmol/L (136-145)
[2022-10-30 07:02] LABS: Platelet Count 780 10x3/uL (130-400)
[2022-10-30] MEDS: Arformoterol 15 MCG/2 ML NEB NEB SCH ×2 (07:14→18:33)
[2022-10-30] MEDS: Budesonide 0.5 MG/2 ML NEB NEB SCH ×2 (07:16→18:33)
[2022-10-30] MEDS ORDERED: Lansoprazole 15 MG/5 ML (BATCHED)UDCUP PER TUBE SCH (09:00)
[2022-10-30] MEDS: Bisacodyl 10 MG SUPP PR SCH (09:08)
[2022-10-30] MEDS: Lactated Ringer's 1,000 ML IV SCH (09:10)
[2022-10-30] MEDS: Amantadine HCl 10 mg/ml Oral Solution PO SCH (09:21)
[2022-10-30] MEDS: Polyethylene Glycol 3350 17 GM Packet PO SCH ×2 (09:21→20:00)
[2022-10-30] MEDS: FLUoxetine HCl 20 MG/5 ML UDCUP PO SCH (09:21)
[2022-10-30] MEDS: Polyvinyl Alcohol 1.4%/Povidone 0.6% Opth Drops EA EYE SCH ×2 (09:22→19:59)
[2022-10-30] MEDS ORDERED: Piperacillin/Tazobactam 3.375 GM in Sodium Chloride 0.9% 100 ML IVPB SCH ×2 (10:00→12:00)
[2022-10-30] MEDS ORDERED: Morphine 2 MG/ML VIAL SLOW IVP PRN (10:05)
[2022-10-30] MEDS: Ketorolac Tromethamine 30 MG/ML VIAL IVP SCH (10:54)
[2022-10-30] MEDS ORDERED: Pantoprazole 40 MG VIAL IVP SCH (11:00)
[2022-10-30] MEDS: Piperacillin/Tazobactam 3.375 GM in Sodium Chloride 0.9% 100 ML IVPB SCH ×2 (14:51→22:38)
[2022-10-30] MEDS: D5W-AA 4.25% with LYTES 1,000 ML IV SCH (17:49)
[2022-10-31] MEDS ORDERED: Lorazepam 2 MG/ML VIAL ONE (01:48)
[2022-10-31] MEDS: Metoclopramide HCl 10 MG/2 ML VIAL IVP SCH ×3 (01:55→18:28)
[2022-10-31] MEDS: Lorazepam 2 MG/ML VIAL SLOW IVP PRN (02:12)
[2022-10-31 02:16] LABS: #Eosinphils 0.2 thou/uL (0.0-0.7); #Monocytes 0.9 thou/uL (0.11-0.59); #Neutrophils 6.9 thou/uL (1.40-6.50); %Basophils 0.2 % (0.0-1.0); %Eosinophils 1.4 % (0.0-10.0); %Lymphocytes 29.9 % (21.0-51.0); %Monocytes 7.4 % (0.0-10.0); %Neutrophils 59.6 % (42.0-75.0); Hemoglobin 6.9 g/dL (14.0-18.0); Mean Corpuscular HGB CONC 30.5 g/dL (32.0-36.0); Mean Corpuscular Hemoglobin 38.3 pg (27.0-31.0); RBC Distribution Width 18.4 % (11.5-14.5); White Blood Cell (WBC) Count 11.6 10x3/uL (4.8-10.8)
[2022-10-31 02:24] LABS: Mean Corpuscular Volume 125.6 fl (78.0-98.0)
[2022-10-31 02:25] LABS: Platelet Count 668 10x3/uL (130-400)
[2022-10-31 02:47] LABS: Anisocytosis SLIGHT = 6-15 cells HPF (0-5); Hypochromia SLIGHT = 6-15 cells HPF (0-5); Macrocytosis MODERATE=16-30 cells HPF (0-5); Platelet Morphology Comment Platelets Increased; Polychromasia MODERATE = 3-4 cells HPF (0-2); Stomatocytes SLIGHT = 2-5 cells HPF (0-1); Target Cells SLIGHT = 2-5 cells HPF (0-1)
[2022-10-31 02:50] LABS: Magnesium 1.9 mg/dL (1.6-2.6)
[2022-10-31 03:16] LABS: ALT (SGPT) 26 U/L (8-55); AST (SGOT) 66 U/L (5-34); Albumin 2.6 g/dL (3.5-5.0); Alkaline Phosphatase 127 U/L (40-110); Anion Gap 13 mmol/L (10-20); BUN (Urea Nitrogen) 13 mg/dL (8.9-20.6); Bilirubin, Total 0.6 mg/dL (0.2-1.2); Calc. Creatinine Clearance 261 mL/min (70-130); Calcium 8.4 mg/dL (7.8-10.44); Carbon Dioxide 29 mmol/L (22-29); Chloride 100 mmol/L (98-107); Estimated GFR 134; Globulin 3.4 g/dL (2.4-3.5); Glucose 94 mg/dL (70-105); Potassium 3.6 mmol/L (3.5-5.1); Sodium 138 mmol/L (136-145)
[2022-10-31] MEDS: Piperacillin/Tazobactam 3.375 GM in Sodium Chloride 0.9% 100 ML IVPB SCH ×3 (05:37→22:48)
[2022-10-31] MEDS: Budesonide 0.5 MG/2 ML NEB NEB SCH ×2 (06:59→18:21)
[2022-10-31] MEDS: Arformoterol 15 MCG/2 ML NEB NEB SCH ×2 (07:01→18:20)
[2022-10-31] MEDS: Pantoprazole 40 MG VIAL IVP SCH (09:40)
[2022-10-31] MEDS: Amantadine HCl 10 mg/ml Oral Solution PO SCH (09:44)
[2022-10-31] MEDS: Bisacodyl 10 MG SUPP PR SCH (09:44)
[2022-10-31] MEDS: FLUoxetine HCl 20 MG/5 ML UDCUP PO SCH (09:45)
[2022-10-31] MEDS: Polyethylene Glycol 3350 17 GM Packet PO SCH ×2 (09:46→20:19)
[2022-10-31] MEDS: Polyvinyl Alcohol 1.4%/Povidone 0.6% Opth Drops EA EYE SCH ×2 (09:46→20:20)
[2022-10-31] MEDS: D5W-AA 4.25% with LYTES 1,000 ML IV SCH (09:47)
[2022-10-31 09:51] LABS: Hemoglobin 6.8 g/dL (14.0-18.0)
[2022-10-31] MEDS: Ketorolac Tromethamine 30 MG/ML VIAL IVP SCH (11:31)
[2022-10-31] MEDS ORDERED: Valproate Sodium 250 MG in Sodium Chloride 0.9% 100 ML IVPB SCH ×2 (15:00→15:30)
[2022-10-31 17:42] VITALS: BP 130/73
[2022-10-31 18:11] LABS: Hemoglobin 8.5 g/dL (14.0-18.0)
[2022-10-31] MEDS: Valproate Sodium 250 MG in Sodium Chloride 0.9% 100 ML IVPB SCH (20:20)
[2022-11-01] MEDS: Valproate Sodium 250 MG in Sodium Chloride 0.9% 100 ML IVPB SCH ×4 (02:00→21:50)
[2022-11-01] MEDS: Metoclopramide HCl 10 MG/2 ML VIAL IVP SCH ×2 (02:00→10:16)
[2022-11-01] MEDS: Piperacillin/Tazobactam 3.375 GM in Sodium Chloride 0.9% 100 ML IVPB SCH ×3 (05:13→22:01)
[2022-11-01 06:02] LABS: #Eosinphils 0.1 thou/uL (0.0-0.7); #Monocytes 0.6 thou/uL (0.11-0.59); #Neutrophils 5.7 thou/uL (1.40-6.50); %Basophils 0.2 % (0.0-1.0); %Eosinophils 1.5 % (0.0-10.0); %Lymphocytes 29.8 % (21.0-51.0); %Monocytes 6.6 % (0.0-10.0); %Neutrophils 61.3 % (42.0-75.0); Hemoglobin 8.2 g/dL (14.0-18.0); Mean Corpuscular HGB CONC 31.2 g/dL (32.0-36.0); Mean Corpuscular Hemoglobin 37.3 pg (27.0-31.0); Mean Corpuscular Volume 119.5 fl (78.0-98.0); Mean Platelet Volume 10.1 fL (7.4-10.4); Platelet Count 637 10x3/uL (130-400); RBC Distribution Width 23.3 % (11.5-14.5); White Blood Cell (WBC) Count 9.4 10x3/uL (4.8-10.8)
[2022-11-01] MEDS: Arformoterol 15 MCG/2 ML NEB NEB SCH (06:21)
[2022-11-01] MEDS: Budesonide 0.5 MG/2 ML NEB NEB SCH ×2 (06:23→18:49)
[2022-11-01 06:48] LABS: ALT (SGPT) 24 U/L (8-55); AST (SGOT) 57 U/L (5-34); Albumin 2.7 g/dL (3.5-5.0); Alkaline Phosphatase 123 U/L (40-110); Anion Gap 12 mmol/L (10-20); BUN (Urea Nitrogen) 9 mg/dL (8.9-20.6); Bilirubin, Total 0.3 mg/dL (0.2-1.2); Calc. Creatinine Clearance 296 mL/min (70-130); Calcium 8.4 mg/dL (7.8-10.44); Carbon Dioxide 31 mmol/L (22-29); Chloride 100 mmol/L (98-107); Estimated GFR 139; Globulin 3.5 g/dL (2.4-3.5); Glucose 89 mg/dL (70-105); Potassium 3.3 mmol/L (3.5-5.1); Protein, Total 6.2 g/dL (6.0-8.3); Sodium 140 mmol/L (136-145)
[2022-11-01] MEDS: Lorazepam 2 MG/ML VIAL SLOW IVP PRN (07:42)
[2022-11-01] MEDS ORDERED: levETIRAcetam 500 MG/5 ML VIAL SLOW IVP SCH (08:45)
[2022-11-01] MEDS: Amantadine HCl 10 mg/ml Oral Solution PO SCH (10:02)
[2022-11-01] MEDS: Polyethylene Glycol 3350 17 GM Packet PO SCH ×2 (10:03→20:46)
[2022-11-01] MEDS: FLUoxetine HCl 20 MG/5 ML UDCUP PO SCH (10:03)
[2022-11-01] MEDS: Pantoprazole 40 MG VIAL IVP SCH (10:03)
[2022-11-01] MEDS: Bisacodyl 10 MG SUPP PR SCH (10:03)
[2022-11-01] MEDS: Polyvinyl Alcohol 1.4%/Povidone 0.6% Opth Drops EA EYE SCH ×2 (10:04→22:02)
[2022-11-01] MEDS: Potassium Chloride 20 MEQ in Premix Bag 1 BAG IVPB SCH ×2 (11:37→13:59)
[2022-11-01] MEDS: levETIRAcetam 500 MG/5 ML VIAL SLOW IVP SCH (20:46)
[2022-11-02] MEDS: Valproate Sodium 250 MG in Sodium Chloride 0.9% 100 ML IVPB SCH ×2 (04:27→09:43)
[2022-11-02 06:09] LABS: #Eosinphils 0.1 thou/uL (0.0-0.7); #Monocytes 0.7 thou/uL (0.11-0.59); #Neutrophils 4.5 thou/uL (1.40-6.50); %Basophils 0.1 % (0.0-1.0); %Eosinophils 1.6 % (0.0-10.0); %Lymphocytes 33.2 % (21.0-51.0); %Monocytes 9.1 % (0.0-10.0); %Neutrophils 55.6 % (42.0-75.0); Hemoglobin 7.9 g/dL (14.0-18.0); Mean Corpuscular HGB CONC 30.9 g/dL (32.0-36.0); Mean Corpuscular Hemoglobin 37.4 pg (27.0-31.0); Mean Corpuscular Volume 121.3 fl (78.0-98.0); Mean Platelet Volume 10.1 fL (7.4-10.4); Platelet Count 633 10x3/uL (130-400); RBC Distribution Width 21.8 % (11.5-14.5); Red Blood Cell (RBC) Count 2.11 mill/uL (4.70-6.10); White Blood Cell (WBC) Count 8.1 10x3/uL (4.8-10.8)
[2022-11-02 06:32] LABS: ALT (SGPT) 22 U/L (8-55); AST (SGOT) 32 U/L (5-34); Albumin 2.9 g/dL (3.5-5.0); Alkaline Phosphatase 113 U/L (40-110); Anion Gap 11 mmol/L (10-20); BUN (Urea Nitrogen) 10 mg/dL (8.9-20.6); Bilirubin, Total 0.2 mg/dL (0.2-1.2); Calc. Creatinine Clearance 307 mL/min (70-130); Calcium 8.8 mg/dL (7.8-10.44); Carbon Dioxide 33 mmol/L (22-29); Chloride 100 mmol/L (98-107); Estimated GFR 140; Globulin 3.4 g/dL (2.4-3.5); Glucose 97 mg/dL (70-105); Potassium 3.7 mmol/L (3.5-5.1); Protein, Total 6.3 g/dL (6.0-8.3); Sodium 140 mmol/L (136-145)
[2022-11-02] MEDS: Piperacillin/Tazobactam 3.375 GM in Sodium Chloride 0.9% 100 ML IVPB SCH ×3 (06:38→21:45)
[2022-11-02] MEDS: Budesonide 0.5 MG/2 ML NEB NEB SCH ×2 (08:07→19:10)
[2022-11-02] MEDS: Pantoprazole 40 MG VIAL IVP SCH (09:43)
[2022-11-02] MEDS: FLUoxetine HCl 20 MG/5 ML UDCUP PO SCH (09:43)
[2022-11-02] MEDS: levETIRAcetam 500 MG/5 ML VIAL SLOW IVP SCH ×2 (09:44→21:43)
[2022-11-02] MEDS: Polyethylene Glycol 3350 17 GM Packet PO SCH ×2 (09:44→21:45)
[2022-11-02] MEDS: Polyvinyl Alcohol 1.4%/Povidone 0.6% Opth Drops EA EYE SCH ×2 (09:44→21:44)
[2022-11-02] MEDS: Amantadine HCl 10 mg/ml Oral Solution PO SCH (09:44)
[2022-11-02] MEDS: Bisacodyl 10 MG SUPP PR SCH (09:44)
[2022-11-02] MEDS: cloNIDine 0.2mg/24 Hour PATCH TD SCH (10:01)
[2022-11-03 04:10] LABS: #Eosinphils 0.2 thou/uL (0.0-0.7); #Monocytes 0.8 thou/uL (0.11-0.59); #Neutrophils 3.2 thou/uL (1.40-6.50); %Basophils 0.3 % (0.0-1.0); %Eosinophils 2.8 % (0.0-10.0); %Lymphocytes 40.2 % (21.0-51.0); %Monocytes 10.6 % (0.0-10.0); %Neutrophils 45.8 % (42.0-75.0); Hemoglobin 8.4 g/dL (14.0-18.0); Mean Corpuscular HGB CONC 30.5 g/dL (32.0-36.0); Mean Corpuscular Hemoglobin 36.7 pg (27.0-31.0); Mean Platelet Volume 9.8 fL (7.4-10.4); Platelet Count 571 10x3/uL (130-400); RBC Distribution Width 20.4 % (11.5-14.5); Red Blood Cell (RBC) Count 2.29 mill/uL (4.70-6.10); White Blood Cell (WBC) Count 7.1 10x3/uL (4.8-10.8)
[2022-11-03 04:17] LABS: Mean Corpuscular Volume 120.1 fl (78.0-98.0)
[2022-11-03 04:35] LABS: ALT (SGPT) 23 U/L (8-55); AST (SGOT) 37 U/L (5-34); Albumin 2.9 g/dL (3.5-5.0); Alkaline Phosphatase 103 U/L (40-110); Anion Gap 12 mmol/L (10-20); BUN (Urea Nitrogen) 13 mg/dL (8.9-20.6); Bilirubin, Total 0.2 mg/dL (0.2-1.2); Calc. Creatinine Clearance 291 mL/min (70-130); Calcium 8.8 mg/dL (7.8-10.44); Carbon Dioxide 32 mmol/L (22-29); Chloride 99 mmol/L (98-107); Estimated GFR 138; Globulin 3.5 g/dL (2.4-3.5); Glucose 108 mg/dL (70-105); Potassium 3.7 mmol/L (3.5-5.1); Protein, Total 6.4 g/dL (6.0-8.3); Sodium 139 mmol/L (136-145)
[2022-11-03] MEDS: Budesonide 0.5 MG/2 ML NEB NEB SCH ×2 (05:55→19:02)
[2022-11-03] MEDS: Piperacillin/Tazobactam 3.375 GM in Sodium Chloride 0.9% 100 ML IVPB SCH (06:17)
[2022-11-03] MEDS: FLUoxetine HCl 20 MG/5 ML UDCUP PO SCH (10:03)
[2022-11-03] MEDS: Pantoprazole 40 MG VIAL IVP SCH (10:03)
[2022-11-03] MEDS: Bisacodyl 10 MG SUPP PR SCH (10:05)
[2022-11-03] MEDS: Polyethylene Glycol 3350 17 GM Packet PO SCH ×2 (10:05→21:27)
[2022-11-03] MEDS: levETIRAcetam 500 MG/5 ML VIAL SLOW IVP SCH (10:05)
[2022-11-03] MEDS: Amantadine HCl 10 mg/ml Oral Solution PO SCH (10:06)
[2022-11-03] MEDS: Polyvinyl Alcohol 1.4%/Povidone 0.6% Opth Drops EA EYE SCH ×2 (16:53→21:13)
[2022-11-03] MEDS: levETIRAcetam 500 mg/5 ml Oral Solution PO SCH (21:27)
[2022-11-03] MEDS: Nystatin/Triamcinolone Cream 15 GM TUBE TOP SCH (21:27)
[2022-11-04] MEDS: Budesonide 0.5 MG/2 ML NEB NEB SCH ×2 (07:02→18:38)
[2022-11-04 07:05] LABS: #Eosinphils 0.2 thou/uL (0.0-0.7); #Monocytes 0.7 thou/uL (0.11-0.59); #Neutrophils 2.9 thou/uL (1.40-6.50); %Basophils 0.4 % (0.0-1.0); %Eosinophils 2.8 % (0.0-10.0); %Lymphocytes 43.1 % (21.0-51.0); %Monocytes 10.3 % (0.0-10.0); %Neutrophils 43.3 % (42.0-75.0); Hemoglobin 9.6 g/dL (14.0-18.0); Mean Corpuscular HGB CONC 30.5 g/dL (32.0-36.0); Mean Corpuscular Hemoglobin 36.4 pg (27.0-31.0); Mean Corpuscular Volume 119.3 fl (78.0-98.0); Mean Platelet Volume 9.6 fL (7.4-10.4); Platelet Count 546 10x3/uL (130-400); RBC Distribution Width 19.1 % (11.5-14.5); Red Blood Cell (RBC) Count 2.64 mill/uL (4.70-6.10); White Blood Cell (WBC) Count 6.8 10x3/uL (4.8-10.8)
[2022-11-04 07:30] LABS: ALT (SGPT) 62 U/L (8-55); AST (SGOT) 122 U/L (5-34); Alkaline Phosphatase 106 U/L (40-110); Anion Gap 11 mmol/L (10-20); BUN (Urea Nitrogen) 13 mg/dL (8.9-20.6); Bilirubin, Total 0.2 mg/dL (0.2-1.2); Calc. Creatinine Clearance 298 mL/min (70-130); Calcium 9.4 mg/dL (7.8-10.44); Carbon Dioxide 32 mmol/L (22-29); Chloride 100 mmol/L (98-107); Estimated GFR 140; Globulin 3.6 g/dL (2.4-3.5); Glucose 87 mg/dL (70-105); Potassium 3.7 mmol/L (3.5-5.1); Protein, Total 6.6 g/dL (6.0-8.3); Sodium 139 mmol/L (136-145)
[2022-11-04 07:45] LABS: CellaVision Operator ID LAB.GE; Large Platelets 2.9 % (0-5); Macrocytosis MODERATE=16-30 cells HPF (0-5); Platelet Morphology Comment Platelets Increased; Polychromasia MODERATE = 3-4 cells HPF (0-2); Stomatocytes MODERATE= 6-15 cells HPF (0-1)
[2022-11-04 09:42] VITALS: BMI 32.7
[2022-11-04] MEDS: levETIRAcetam 500 mg/5 ml Oral Solution PO SCH (10:06)
[2022-11-04] MEDS: Pantoprazole 40 MG VIAL IVP SCH (10:06)
[2022-11-04] MEDS: Polyethylene Glycol 3350 17 GM Packet PO SCH (10:06)
[2022-11-04] MEDS: FLUoxetine HCl 20 MG/5 ML UDCUP PO SCH (10:07)
[2022-11-04] MEDS: Nystatin/Triamcinolone Cream 15 GM TUBE TOP SCH (10:07)
[2022-11-04] MEDS: Amantadine HCl 10 mg/ml Oral Solution PO SCH (10:07)
[2022-11-04] MEDS: Bisacodyl 10 MG SUPP PR SCH (10:08)
[2022-11-04] MEDS: Polyvinyl Alcohol 1.4%/Povidone 0.6% Opth Drops EA EYE SCH (10:09)
[2022-11-04 12:45] VITALS: TEMP 97.6
[2022-11-04] MEDS ORDERED: levETIRAcetam 500 MG TAB PO SCH (21:00)
== END 2022-11-04 20:00 | DRG 417 ==
LOC: ERS 17:48 → NEURO 19:00 → IMCU/EMU 10-19 18:40
PROVIDERS: ADMIT Internal Medicine; ATTEND Internal Medicine
PROC: 5A09357 Assistance with Respiratory Ventilation, Less than 24 Consecutive Hours, Continuous Positive Airway Pressure (ICD-10-PCS; 2022-10-14)
PROC: 4A133R1 Monitoring of Arterial Saturation, Peripheral, Percutaneous Approach (ICD-10-PCS; 2022-10-14)
PROC: 0FT44ZZ Resection of Gallbladder, Percutaneous Endoscopic Approach (ICD-10-PCS; principal; 2022-10-18)
PROC: BF141ZZ Fluoroscopy of Gallbladder, Bile Ducts and Pancreatic Ducts using Low Osmolar Contrast (ICD-10-PCS; 2022-10-18)
PROC: 5A0945A Assistance with Respiratory Ventilation, 24-96 Consecutive Hours, High Flow/Velocity Cannula (ICD-10-PCS; 2022-10-20)
PROC: 3E03329 Introduction of Other Anti-infective into Peripheral Vein, Percutaneous Approach (ICD-10-PCS; 2022-10-20)
PROC: 02HV33Z Insertion of Infusion Device into Superior Vena Cava, Percutaneous Approach (ICD-10-PCS; 2022-10-23)
PROC: B548ZZA Ultrasonography of Superior Vena Cava, Guidance (ICD-10-PCS; 2022-10-23)
PROC: 0D9670Z Drainage of Stomach with Drainage Device, Via Natural or Artificial Opening (ICD-10-PCS; 2022-10-23)
PROC: 3E0436Z Introduction of Nutritional Substance into Central Vein, Percutaneous Approach (ICD-10-PCS; 2022-10-23)
PROC: 0H97XZZ Drainage of Abdomen Skin, External Approach (ICD-10-PCS; 2022-10-26)
PROC: 30233N1 Transfusion of Nonautologous Red Blood Cells into Peripheral Vein, Percutaneous Approach (ICD-10-PCS; 2022-10-31)
PROC: 0DH67UZ Insertion of Feeding Device into Stomach, Via Natural or Artificial Opening (ICD-10-PCS; 2022-10-31)
PROC: 3E0G76Z Introduction of Nutritional Substance into Upper GI, Via Natural or Artificial Opening (ICD-10-PCS; 2022-10-31)
DX: K80.62 Calculus of gallbladder and bile duct with acute cholecystitis without obstruction (principal); K85.10 Biliary acute pancreatitis without necrosis or infection; A41.9 Sepsis, unspecified organism; J69.0 Pneumonitis due to inhalation of food and vomit; R65.21 Severe sepsis with septic shock; J96.01 Acute respiratory failure with hypoxia; F84.0 Autistic disorder; J98.11 Atelectasis; E66.2 Morbid (severe) obesity with alveolar hypoventilation; E87.0 Hyperosmolality and hypernatremia; K56.0 Paralytic ileus; T81.41XA Infection following a procedure, superficial incisional surgical site, initial encounter; G40.909 Epilepsy, unspecified, not intractable, without status epilepticus; H90.5 Unspecified sensorineural hearing loss; D53.9 Nutritional anemia, unspecified; E83.42 Hypomagnesemia; K59.00 Constipation, unspecified; D50.9 Iron deficiency anemia, unspecified; R13.12 Dysphagia, oropharyngeal phase; B35.6 Tinea cruris; R40.0 Somnolence; T46.5X5A Adverse effect of other antihypertensive drugs, initial encounter; D75.839 Thrombocytosis, unspecified; Y83.8 Other surgical procedures as the cause of abnormal reaction of the patient, or of later complication, without mention of misadventure at the time of the procedure; K31.84 Gastroparesis; Y95 Nosocomial condition; E87.6 Hypokalemia; Q98.4 Klinefelter syndrome, unspecified; Z78.1 Physical restraint status; Z80.6 Family history of leukemia; Z88.8 Allergy status to other drugs, medicaments and biological substances; Z79.899 Other long term (current) drug therapy; Z68.32 Body mass index [BMI] 32.0-32.9, adult
CPT/HCPCS: 36415; 36416; 36430; 36569; 36600; 47532; 70450; 71045; 71260; 71275; 74018; 74019; 74022; 74177; 76705; 80053; 80061; 80164; 81001; 82140; 82805; 83540; 83550; 83605; 83690; 83735; 83880; 83921; 84100; 84145; 84484; 85025; 85379; 86850; 86900; 86901; 87040; 87449; 87633; 87798; 88304; 93005; 93306; 93970; 94660; 95712; 95816; 95819; 95957; 96374; 96375; 97139; C1751; C1889; C9113; J1611; J1644; J1650; J1885; J1940; J1953; J2060; J2270; J2272; J2405; J2543; J2550; J2704; J2765; J3010; J3475; J3480; J3490; J7050; J7120; J7626; J7999; P9016; Q9963; Q9967